=== PATIENT | male | born 1945 | race Caucasian/White ===

== ENCOUNTER → 2024-02-29 15:37 | Outpatient (REF) | payer OTHER, SELFPAY | LOC: RAD 15:37 | PROVIDERS: ATTENDING PHYSICIAN Nurse Practitioner Family | DX: L08.9 Local infection of the skin and subcutaneous tissue, unspecified (principal) | CPT/HCPCS: 73660 ==

== ENCOUNTER 2024-03-01 20:20 | Inpatient (IN) | payer OTHER, SELFPAY ==
[2024-03-01] VITALS (10 sets, daily range): BP systolic 113–154; BP diastolic 47–61; BMI 22.3; BMI 21.2
[2024-03-01 16:51] LABS: % Basophils 1.4 % (0-2); % Eosinophils 2.3 % (0-6); % Immature Granulocytes 0.3 % (0-0.5); % Lymphocytes 11.5 % (20.5-51.1); % Monocytes 9.9 % (1.7-9.3); % Neutrophils 74.6 % (42.2-75.2); Absolute Basophils 0.1 10^3/uL (0-0.2); Absolute Eosinophils 0.2 10^3/uL (0-0.7); Absolute Lymphocytes 0.8 10^3/uL (1.2-3.4); Absolute Monocytes 0.7 10^3/uL (0.1-0.6); Absolute Neutrophils 5.2 10^3/uL (1.4-6.5); Hematocrit 29.6 % (39.0-52.0); Hemoglobin 10.6 g/dL (13.0-18.0); Mean Corp Hgb Conc. 35.8 g/dL (33.0-37.0); Mean Corpuscular Hgb 29.5 pg (27.0-31.0); Mean Corpuscular Volume 82.5 fL (80.0-94.0); Mean Platelet Volume 8.7 fL (7.4-10.4); Nucleated Red Blood Cells % 0 % (-); Platelet Count 207 10^3/uL (130-400); Red Blood Cell Count 3.59 10^6/uL (4.70-6.10); Red Cell Dist. Width 12.9 % (11.5-14.5)
--- NOTE | 2024-03-01 17:08 | ED.GENMED ---
History of Present Illness
<Noreen Brice DO, Resident - Last Filed: 03/01/24 19:42>
General
Chief Complaint: Musculo-Skeletal Complaint
Source: patient and significant other
Time Seen by Provider: 03/01/24 16:55
History of Present Illness
History of Present Illness:
Pt is a 79 YO M presenting to ED after diagnosis of osteomyelitis of right index toe. Patient was called by PCP to go to the ED for IV Abx. said she noticed pus oozing yesterday and PCP did imaging and testing yesterday in clinic. Patient is
stable and reports no other symptoms.
Past History
<Noreen Brice DO, Resident - Last Filed: 03/01/24 19:42>
Past History
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
right temporoparietal)
ED Past Surgical History: Cardiac (AICD) and Other (Left carotid endarterectomy March 2019)
Social History
Tobacco: Non-smoker
Alcohol: None
Drug: None
Personal:
Living: with family
Employment: Retired
Family History
Family History: Unable to obtain
Review of Systems
<Noreen Brice DO, Resident - Last Filed: 03/01/24 19:42>
Review of Systems
Constitutional: Reports no symptoms
EENT: Reports no symptoms
Respiratory: Reports no symptoms
Cardiac: Reports no symptoms
ABD/GI: Reports no symptoms
Musculoskeletal: Reports other (osteomyelitis of right toe)
Skin: Reports other (green discharge from site of injury, moist and weeping skin. )
Neurological: Reports no symptoms
Phy Exam
<Noreen Brice DO, Resident - Last Filed: 03/01/24 19:42>
General Physical Exam
General Presentation: well appearing and no apparent distress
General age: appears stated age
General Habitus: normal and elderly
General Mental: alert
General Hydration: appears well hydrated
Cardiovascular Exam
Cardiovascular Exam: regular rate/rhythm, no edema, no gallop, no JVD, no murmur and normal peripheral pulses
Pulmonary Exam
Pulmonary Exam: lungs clear, no respiratory distress, no rales, chest non tender, no crackles, no rhonchi, no stridor, no wheezing and no cough
Musculoskeletal Exam
Musculoskeletal Exam: full ROM and other (injury to medial right index toe, green discharge and moist skin)
Course
<Noreen Brice DO, Resident - Last Filed: 03/01/24 19:42>
Orders/Labs/Results
Orders:
Orders
03/01/24 Breakfast
Regular
At Your Request: Limited Participation
Fluid Restriction: 1200 mL/day (40 oz)
03/01/24 16:42
CMP [Comprehensive Metabolic Panel] Urgent
Complete Blood Count/With Diff Urgent
Iron Urgent
Total Iron Binding Urgent
Vitamin B12 Urgent
Comment: ADD ON
03/01/24 19:00
PODIATRY CONSULT Urgent
Consulting Provider: Kris Rosario
Was physician already notified: Yes
03/01/24 19:01
Piperacillin/Tazo 3.375 Gram [Zosyn] 3.375 gram in 50 ml IV NOW
03/01/24 19:46
EKG [Electrocardiogram (*1)] Urgent
Reason for Study: Atrial Fibrillation
CXR2 [CR Chest - 2 Views ] Routine
Comment:
Reason For Exam: Pre-Op, PPM
03/01/24 19:47
Admit/Transfer Patient As Directed
Co-Sign Provider:
Level of Care: Inpatient admission
Assign to:: Telemetry
Physician / Group: Derek
Diagnosis: R 2nd Toe Osteomyelitis
Reason for Telemetry: Arrhythmia
Date to Stop Telemetry: 03/04/24
Time to Stop Telemetry: 11:00
Reason for Hospitalization: R 2nd Toe Osteomyelitis
Expected length of stay greater than two midnights?: Yes
ELOS- Estimated Length of Stay in days: 4
I certify the patient meets the requirements for IP care: Yes
03/01/24 19:51
Code Status As Directed
Resuscitation Status: Full Code
03/01/24 20:01
Vancomycin [Vancocin] 1,250 mg 0.9% Sodium Chloride 250 ml [Nss] 250 ml IV NOW
03/01/24 21:19
Acetaminophen [Tylenol] 650 mg PO Q4HPRN PRN
Gabapentin [Neurontin] 300 mg PO BID
03/01/24 21:19
Vascular Surgery Consult Routine
Consulting Provider: Ragini Foley
Was physician already notified: Yes
Reason for consult: Osteo R 2nd Toe / ASCVD
Lower Ext No Joint, Left With MR [MR Left Le No Joint With] Urgent
Comment:
Reason For Exam: Right 2nd Toe OM
Recent pill cam endoscopy?: No
Activity As Directed
Activity Level: Ambulate
With Assistance
Bladder Scan As Directed
Follow Bladder Retention/Intermittent Cath Algorithm?: Yes
PRN if no void in __ hours: 6
Frequency: Per Retention Algorithm
If Bladder Scan Result >: 400
then:: Straight cath
EKG with chest pain [ECG as needed] As Directed
ECG as needed for:: Chest Pain
I/O [Intake/ Output] As Directed
Frequency: Per unit guidelines
Pneumatic Compression Sleeves As Directed
Type: Knee high
Straight Cath As Directed
Frequency: Per Retention Algorithm
Additional Instructions: straight cath as needed per acute urinary retention algorithm for 24 hrs
Additional Instructions: for bladder scan greater than 400 mL
Vital Signs As Directed
Frequency: Per unit guidelines
Weight As Directed
Frequency: Daily
Ot Eval And Treat Routine
PT Consult [Pt Eval And Treat] Routine
Activity Level: Ambulate
With Assistance
DX Deep Vein Thrombosis Video Routine
03/01/24 23:00
Osmolality, Random Urine Urgent
Date Specimen was Collected: 03/01/24
Time Specimen was Collected: 19:26
Urine Sodium Urgent
Date Specimen was Collected: 03/01/24
Time Specimen was Collected: 19:26
03/02/24 02:00
Ampicillin/Sulbactam 3 G [Unasyn] 3 gm 0.9% Sodium Chloride 100 ml [Nss] 100 ml IV Q6H
03/02/24 06:00
Basic Metabolic Panel IN AM
Complete Blood Count/No Diff IN AM
03/02/24 08:00
Aspirin Low Dose EC [Aspir Low (Enteric Coated)] 81 mg PO DAILY
Atorvastatin [Lipitor] 10 mg PO DAILY
NIFEdipine EXTENDED RELEASE [Procardia Xl (Extended Release)] 30 mg PO DAILY
Pantoprazole [Protonix] 40 mg PO DAILY
Tamsulosin [Flomax] 0.4 mg PO DAILY
03/04/24 11:00
DC Protocol for Telemetry ONCE
Abnormal Lab Results
03/01/24
16:42
RBC 3.59 L 10^6/uL
(4.70-6.10)
Hgb 10.6 L g/dL
(13.0-18.0)
Hct 29.6 L %
(39.0-52.0)
Absolute Lymphs (auto) 0.8 L 10^3/uL
(1.2-3.4)
Absolute Monos (auto) 0.7 H 10^3/uL
(0.1-0.6)
Lymphocytes % 11.5 L %
(20.5-51.1)
Monocytes % 9.9 H %
(1.7-9.3)
Sodium 126 L mmol/L
(135-145)
Chloride 95 L mmol/L
(98-107)
Creatinine 1.5 H mg/dL
(0.7-1.3)
Glucose 128 H mg/dl
(70-99)
% Saturation 17 L %
(20-50)
03/01/24 16:42
03/01/24 16:42
Vital Signs
Initial and Last Documented VS:
Initial Vital Signs
Temp Pulse Resp BP Pulse Ox
36.7 C 62 16 132/52 95
03/01/24 15:24 03/01/24 15:24 03/01/24 15:24 03/01/24 15:24 03/01/24 15:24
Last Documented Vital Signs
Temp Pulse Resp BP Pulse Ox
36.6 C 76 18 137/54 94
03/01/24 23:55 03/01/24 23:55 03/01/24 23:55 03/01/24 23:55 03/01/24 23:55
<Curtis Garzon MD - Last Filed: 03/02/24 01:25>
Orders/Labs/Results
Orders:
Orders
03/01/24 Breakfast
Regular
At Your Request: Limited Participation
Fluid Restriction: 1200 mL/day (40 oz)
03/01/24 16:42
CMP [Comprehensive Metabolic Panel] Urgent
Complete Blood Count/With Diff Urgent
Iron Urgent
Total Iron Binding Urgent
Vitamin B12 Urgent
Comment: ADD ON
03/01/24 19:00
PODIATRY CONSULT Urgent
Consulting Provider: Kris Rosario
Was physician already notified: Yes
03/01/24 19:01
Piperacillin/Tazo 3.375 Gram [Zosyn] 3.375 gram in 50 ml IV NOW
03/01/24 19:46
EKG [Electrocardiogram (*1)] Urgent
Reason for Study: Atrial Fibrillation
CXR2 [CR Chest - 2 Views ] Routine
Comment:
Reason For Exam: Pre-Op, PPM
03/01/24 19:47
Admit/Transfer Patient As Directed
Co-Sign Provider:
Level of Care: Inpatient admission
Assign to:: Telemetry
Physician / Group: Derek
Diagnosis: R 2nd Toe Osteomyelitis
Reason for Telemetry: Arrhythmia
Date to Stop Telemetry: 03/04/24
Time to Stop Telemetry: 11:00
Reason for Hospitalization: R 2nd Toe Osteomyelitis
Expected length of stay greater than two midnights?: Yes
ELOS- Estimated Length of Stay in days: 4
I certify the patient meets the requirements for IP care: Yes
03/01/24 19:51
Code Status As Directed
Resuscitation Status: Full Code
03/01/24 20:01
Vancomycin [Vancocin] 1,250 mg 0.9% Sodium Chloride 250 ml [Nss] 250 ml IV NOW
03/01/24 21:19
Acetaminophen [Tylenol] 650 mg PO Q4HPRN PRN
Gabapentin [Neurontin] 300 mg PO BID
03/01/24 21:19
Vascular Surgery Consult Routine
Consulting Provider: Ragini Foley
Was physician already notified: Yes
Reason for consult: Osteo R 2nd Toe / ASCVD
Lower Ext No Joint, Left With MR [MR Left Le No Joint With] Urgent
Comment:
Reason For Exam: Right 2nd Toe OM
Recent pill cam endoscopy?: No
Activity As Directed
Activity Level: Ambulate
With Assistance
Bladder Scan As Directed
Follow Bladder Retention/Intermittent Cath Algorithm?: Yes
PRN if no void in __ hours: 6
Frequency: Per Retention Algorithm
If Bladder Scan Result >: 400
then:: Straight cath
EKG with chest pain [ECG as needed] As Directed
ECG as needed for:: Chest Pain
I/O [Intake/ Output] As Directed
Frequency: Per unit guidelines
Pneumatic Compression Sleeves As Directed
Type: Knee high
Straight Cath As Directed
Frequency: Per Retention Algorithm
Additional Instructions: straight cath as needed per acute urinary retention algorithm for 24 hrs
Additional Instructions: for bladder scan greater than 400 mL
Vital Signs As Directed
Frequency: Per unit guidelines
Weight As Directed
Frequency: Daily
Ot Eval And Treat Routine
PT Consult [Pt Eval And Treat] Routine
Activity Level: Ambulate
With Assistance
DX Deep Vein Thrombosis Video Routine
03/01/24 23:00
Osmolality, Random Urine Urgent
Date Specimen was Collected: 03/01/24
Time Specimen was Collected: 19:26
Urine Sodium Urgent
Date Specimen was Collected: 03/01/24
Time Specimen was Collected: 19:26
03/02/24 02:00
Ampicillin/Sulbactam 3 G [Unasyn] 3 gm 0.9% Sodium Chloride 100 ml [Nss] 100 ml IV Q6H
03/02/24 06:00
Basic Metabolic Panel IN AM
Complete Blood Count/No Diff IN AM
03/02/24 08:00
Aspirin Low Dose EC [Aspir Low (Enteric Coated)] 81 mg PO DAILY
Atorvastatin [Lipitor] 10 mg PO DAILY
NIFEdipine EXTENDED RELEASE [Procardia Xl (Extended Release)] 30 mg PO DAILY
Pantoprazole [Protonix] 40 mg PO DAILY
Tamsulosin [Flomax] 0.4 mg PO DAILY
03/04/24 11:00
DC Protocol for Telemetry ONCE
Abnormal Lab Results
03/01/24
16:42
RBC 3.59 L 10^6/uL
(4.70-6.10)
Hgb 10.6 L g/dL
(13.0-18.0)
Hct 29.6 L %
(39.0-52.0)
Absolute Lymphs (auto) 0.8 L 10^3/uL
(1.2-3.4)
Absolute Monos (auto) 0.7 H 10^3/uL
(0.1-0.6)
Lymphocytes % 11.5 L %
(20.5-51.1)
Monocytes % 9.9 H %
(1.7-9.3)
Sodium 126 L mmol/L
(135-145)
Chloride 95 L mmol/L
(98-107)
Creatinine 1.5 H mg/dL
(0.7-1.3)
Glucose 128 H mg/dl
(70-99)
% Saturation 17 L %
(20-50)
03/01/24 16:42
03/01/24 16:42
Vital Signs
Initial and Last Documented VS:
Initial Vital Signs
Temp Pulse Resp BP Pulse Ox
36.7 C 62 16 132/52 95
03/01/24 15:24 03/01/24 15:24 03/01/24 15:24 03/01/24 15:24 03/01/24 15:24
Last Documented Vital Signs
Temp Pulse Resp BP Pulse Ox
36.6 C 76 18 137/54 94
03/01/24 23:55 03/01/24 23:55 03/01/24 23:55 03/01/24 23:55 03/01/24 23:55
<Noreen Brice DO, Resident - Last Filed: 03/01/24 19:42>
MDM/Problems Addressed
Differential Diagnosis Includes:
osteomyelitis
MDM/Problems Addressed:
Pt is a 79 YO M presenting to ED after diagnosis of osteomyelitis of right index toe. Podiatry consulted and agreed on plan to admit patient. IV Abx (Vancomycin and Zosyn) started and MRI ordered. Patient stable.
Chronic conditions affecting care:
NA
Acute Exacerbation and/or Progression of Chronic Illness:
NA
<Noreen Brice DO, Resident - Last Filed: 03/01/24 19:42>
*Radiology
Radiology exam reviewed: other (MRI of foot ordered, pending)
*Pulse Oximetry
Patient hypoxic: no
*EKG
Interpreted by ED Provider?: NA
*Metal Machine Setter Interpretation
Rate: Metal Machine Setter- N/A
*Critical Care Note
Total Time (30-74mins, 75-104mins- exclusive of procedures): Not Applicable
ED Attending Note
<Noreen Brice DO, Resident - Last Filed: 03/01/24 19:42>
-
Portions of this chart may have been created with voice recognition software.� Occasional wrong word or��sound alike� substitutions may have occurred due to the inherent limitations of voice recognition software.
<Curtis Garzon MD - Last Filed: 03/02/24 01:25>
ED Attending Note
Patient seen and examined by attending physician: Yes
I performed a history and physical exam of patient and discussed management with resident, I reviewed resident's note and agree with documented findings and plan of care.: Yes
ED Attending Note:
I have seen and evaluated the patient with a [id number] encounter. I have spoken to the resident and involved in the medical history, the physical exam, medical decision making.
Evaluation and management service: agree unless noted differently below.
Results interpretation: agree unless noted differently below.
Focused HPI: 79-year-old male with history as documented presents to the emergency room with his for evaluation of right toe wound and outpatient x-ray showing osteomyelitis. Patient is an extremely poor historian. When asked how long he has
had his toe wound he says 'I am not sure, maybe a few months.' Denies any specific trauma. He says that he does have pain in his foot but says that 'I always have pain.' According to his he has been complaining of increased pain over the
past few days to week. She finally took a look at his foot and noted that he has a large wound on the medial aspect of his second toe. Took him to his primary doctor who ordered outpatient x-ray which was performed yesterday. Today received a
call that he had osteomyelitis on the x-ray and was sent to the emergency room. No fevers or chills. No other complaints.
Physical exam: Awake alert. Vital signs normal. He has a shallow-based ulceration on the medial aspect of his right second toe. The entire toe is erythematous, skin is somewhat friable and tender to the touch. No extension of the erythema beyond
the toe�the adjacent toes appear normal although toenails all appear to onychomycosis.
Medical Decision Makin-year-old male presents with right toe wound and redness surrounding, x-rays and outpatient concern for osteomyelitis. I discussed the case with podiatry who recommended admission for IV antibiotics and MRI and they will
consult on patient.
Discharge Plan
Departure
Patient Disposition: Admit
Date of Disposition: 03/01/24
Time of Disposition: 19:24
Admit to: Telemetry
Presentation/result/management discussed w/ accepting MD/DO: Hospitalist
Condition: Good
Discharge Problem:
Osteomyelitis of foot
Interventions
Interventions:
*Risk Screen - Suicide Last Done: 03/01/24 16:36
*General Assessment Last Done: 03/01/24 15:24
*Neglect/Abuse Screening Last Done: 03/01/24 16:36
ED- Fall Risk Assessment Last Done: 03/01/24 21:14
*ED COVID-19 Vaccine History Last Done: 03/01/24 16:36
*Nursing Disposition Last Done: 03/01/24 21:14
ED-Musculoskeletal Assessment Last Done: 03/01/24 16:36
Discharge Date and Time
Discharge Date/Time: 03/01/24 21:14
[2024-03-01 17:14] LABS: ALT (SGPT) < 10 U/L (0-50); AST (SGOT) 24 U/L (17-59); Albumin 3.9 g/dl (3.5-5.0); Alkaline Phosphatase 118 U/L (38-126); Blood Urea Nitrogen 14 mg/dl (9-20); Carbon Dioxide 22 mmol/L (22-30); Chloride 95 mmol/L (98-107); Estimated Creatinine Clearance 38 ml/min; Glucose 128 mg/dl (70-99); Potassium 4.6 mmol/L (3.5-5.1); Sodium 126 mmol/L (135-145); Total Bilirubin 0.6 mg/dl (0.2-1.3); eGFR 47.36
[2024-03-01] MEDS: ZOSYN 50 IV (19:14)
--- NOTE | 2024-03-01 19:20 | PHANOTE ---
Med Rec Note:
Tried to call pt's [place] regarding home medications, spouse did not answer. Home med list compiled from Dr Apodaca and [facility] visit on 02/29/24.
--- NOTE | 2024-03-01 19:56 | HPS.HSE ---
Family Physician
-
Family Physician: ANH Rivera
Chief Complaint
-
R 2nd Toe Swelling
History of Present Illness
Patient is a 79y M with PMH significant for ASCVD, A-Fib and prior hemorrhagic CVA who presents to ED for evaluation of R 2nd toe wound, swelling and suspected osteomyelitis on outpatient imaging. Patient states that the toe has been discolored
and somewhat swollen for 'a while'. He had outpatient imaging done on 02/28 showing bony changes suspicious for osteomyelitis. Patient states that he has no pain at present. He denies any systemic complaints including fevers, chills, N/V/D, etc.
Patient denies any other complaints.
Medical History
Past Medical History
Past Medical History: Reports Other
Additional Past Medical History:
ASCVD (CAD, Carotid Stenosis)
Chronic Atrial Fibrillation
Hemorrhagic CVA (2020)
Hypertension
Dementia / Depression
Chronic Hyponatremia
CKD III
Past Surgical History: Reports Other
Additional Past Surgical History:
Herniorrhaphy
CABG
PPM / AICD Placement
Left CEA
Social History
Tobacco: Non-smoker
Alcohol: Occasional
Drug: None
Personal:
Living: With Family
Family History
Family History: Not pertinent
Allergies / Home Medications
Allergies reflects when Allergies were last updated in [employer].
Home Medications with original date entered in [facility]
Allergy/Medication List:
Allergies
Allergy/AdvReac Type Severity Reaction Status Date / Time
No Known Allergies Allergy Verified 03/01/24 15:27
Home Medications
aspirin 81 mg tablet,delayed release 81 mg PO DAILY #30 tabs 10/14/20
atorvastatin 10 mg tablet 10 mg PO DAILY #90 tabs 10/14/20
gabapentin 300 mg capsule 300 mg PO BID #180 caps 10/14/20
nifedipine 30 mg tablet,extended release 30 mg PO DAILY #30 tabs 10/14/20
tamsulosin 0.4 mg capsule 0.4 mg PO DAILY #90 caps 10/14/20
escitalopram oxalate 5 mg tablet 5 mg PO DAILY 03/01/24
melatonin 5 mg tablet 5 mg PO HSPRN PRN sleep 03/01/24
pantoprazole 40 mg tablet,delayed release 40 mg PO DAILY 03/01/24
sulfamethoxazole 800 mg-trimethoprim 160 mg tablet 1 tab PO BID 03/01/24
Review of Systems
-
History Source: Patient
A 12 point ROS was completed and negative except as noted: Yes
Constitutional: Denies Fever or Chills
Respiratory: Denies Cough or Trouble Breathing
Cardiac: Denies Chest Pain or Palpitations
Abdomen/GI: Denies Abdominal Pain, Nausea, Vomiting or Diarrhea
: Denies Dysuria or Frequency
Musculoskeletal: Reports Joint Pain and Joint Swelling
Neurological: Denies Dizzy or Headache
Psych: Reports Dementia
Physical Exam
Vital Signs
Vital Signs
Temp Pulse Resp BP Pulse Ox
98.1 F 56 18 136/58 93
03/01/24 15:24 03/01/24 19:18 03/01/24 19:18 03/01/24 19:18 03/01/24 19:18
Physical Exam
General: Other (79y M in no acute distress.)
HEENT: Moist mucous membranes and PERRLA
Respiratory: Clear; No Wheezes, Rales or Rhonchi
Cardiac: S1/S2, Regular Rhythm and Murmur (II/ JACOB)
GI: Soft, Non Tender, Non Distended and Normal Bowel Sounds
Musculoskeletal: No Clubbing, No Cyanosis and Other (Edema and mild erythema of the R 2nd toe extending into the forefoot. Thick onychololysis of great toes. Ulceration medial aspect of the R 2nd toe without bleeding / discharge.)
Neuro: Awake and Alert
Laboratory Results
-
03/01/24 16:42
03/01/24 16:42
Laboratory Results
Total Bilirubin 0.6 mg/dl (0.2-1.3) 03/01/24 16:42
AST 24 U/L (17-59) 03/01/24 16:42
ALT < 10 U/L (0-50) 03/01/24 16:42
Alkaline Phosphatase 118 U/L (38-126) 03/01/24 16:42
Impression/Plan
-
A/P: Patient is a 79y M with PMH significant for ASCVD, A-Fib and prior hemorrhagic CVA who presents to ED for evaluation of R 2nd toe swelling with suspected osteomyelitis.
Right 2nd Toe Ulceration +/- Osteomyelitis
- Admit for further evaluation and treatment.
- Continue IV abx with Unasyn for now.
- Adjust as needed based on operative cultures and / or definitive surgical treatment.
- Podiatry consulted for further recommendations / potential amputation.
- Vascular Surgery evaluation given significant ASCVD history.
- No significant pain. No systemic symptoms of infection / sepsis.
- Follow for clinical changes.
ASCVD
- History of CAD s/p CABG, prior CEA and history of hemorrhagic CVA.
- No chest pain or other symptoms at present.
- Continue ASA, statin, etc.
- Vasc eval as noted above.
Chronic Hyponatremia
- Na = 126. On prior visits, ranged from 125 - 133.
- Urine studies pending at present.
- Fluid restriction for now.
- Hold Lexapro.
- Follow for changes.
- Nephrology evaluation - patient received Samsca during prior admission for hyponatremia.
Chronic Atrial Fibrillation
- Not on OAC given prior history of hemorrhagic stroke.
- s/p PPM and AICD.
- Monitor on tele. Check EKG now.
- Continue baby ASA.
Renal Insufficiency (DARRICK v CKD)
- SCr = 1.5 compared to 1.0 on prior testing (3 years ago).
- Outpatient records suggest CKD III - ? acute versus chronic.
- Follow for changes over the next 48 hours.
Normocytic Anemia
- Hgb = 10.6 with baseline fluctuating between 10.5 and 12.5.
- No gross evidence of blood loss.
- Check iron studies, B12, etc.
- Follow H&H for changes.
- Consider transfusion if needed.
Benign Hypertension
- Stable. Continue nifedipine with holding parameters.
Senile Dementia with Depression
- Stable. Continue gabapentin. Hold Lexapro for now as noted above.
- Follow for acute delirium / decompensation during hospital stay.
DVT Prophylaxis: SCDs
Code Status: Full
[2024-03-01] MEDS: VANCOCIN 275 MG IV (20:27)
[2024-03-01 21:57] LABS: Iron 51 ug/dl (49-181)
[2024-03-01] MEDS: NEURONTIN 300 MG PO (21:57)
[2024-03-01 22:07] LABS: Percent Saturation 17 % (20-50); Total Iron Binding Capacity 297 ug/dl (261-462)
[2024-03-01 22:39] LABS: Vitamin B12 274 pg/ml (239-931)
[2024-03-02] VITALS (17 sets, daily range): BP systolic 100–142; BP diastolic 50–79; BMI 20.4
[2024-03-02] MEDS: UNASYN IV ×4 (01:10→19:49)
--- NOTE | 2024-03-02 07:31 | W.PN.HOSP.TC ---
Today's Communication/Plan
-
cont abx
wound care
podiatry eval
B12 supplementation.
Assessment / Plan
Assessment / Plan
Physical Exam
General: No acute distress
HEENT: Moist mucous membranes and PERRLA
Respiratory: Clear; No Wheezes, Rales or Rhonchi
Cardiac: S1/S2, Regular Rhythm and Murmur (II/ JACOB)
GI: Soft, Non Tender, Non Distended and Normal Bowel Sounds
Musculoskeletal: No Clubbing, No Cyanosis, no edema
Neuro: Awake and Alert
A/P: Patient is a 79y M with PMH significant for ASCVD, A-Fib and prior hemorrhagic CVA who presents to ED for evaluation of R 2nd toe swelling with suspected osteomyelitis.
Right 2nd Toe Ulceration +/- Osteomyelitis
- Continue IV abx Unasyn
- Podiatry consulted for further recommendations / potential amputation.
- Vascular Surgery eval appreciated
- No significant pain. No systemic symptoms of infection / sepsis.
ASCVD
- History of CAD s/p CABG, prior CEA and history of hemorrhagic CVA.
- No chest pain or other symptoms at present.
- Continue ASA, statin, etc.
- Vasc eval as noted above.
Chronic Hyponatremia
- Na = 126. On prior visits, ranged from 125 - 133.
- Urine studies pending at present.
- Fluid restriction for now.
- Hold Lexapro.
- Follow for changes.
- Nephrology eval appreciated
Chronic Atrial Fibrillation
- Not on OAC given prior history of hemorrhagic stroke.
- s/p PPM and AICD.
- Monitor on tele. Check EKG now.
- Continue baby ASA.
Renal Insufficiency (DARRICK v CKD)
- Nephro eval appreciated
Normocytic Anemia
- No gross evidence of blood loss.
- H&H stable
-Iron wnl
-B12 deficiency noted, started on supplementation
Benign Hypertension
- Stable. Continue nifedipine with holding parameters.
Senile Dementia with Depression
- Stable. Continue gabapentin. Hold Lexapro for now as noted above.
- Follow for acute delirium / decompensation during hospital stay.
DVT Prophylaxis: SCDs
Code Status: Full
I spent a total of 50 minutes with the patient or on the floor. More than 50% of this time involved counseling and coordination of care.
Anticipated Discharge: > 48 hours
Subjective/Interval History
-
Date of Service: March 02, 2024
No acute distress appears comfortable at this time.
Objective Data
-
Labs:
Laboratory Results
03/02/24
06:36
WBC Pending
Hgb Pending
Hct Pending
Plt Count Pending
Sodium Pending
Potassium Pending
Chloride Pending
Carbon Dioxide Pending
BUN Pending
Creatinine Pending
Glucose Pending
Calcium Pending
Vital Signs:
Vital Signs
Temp Pulse Resp BP Pulse Ox
97.8 F 71 18 132/59 90
03/02/24 03:07 03/02/24 03:07 03/02/24 03:07 03/02/24 03:07 03/02/24 03:07
I&O
03/01/24 03/02/24 03/03/24
06:59 06:59 06:59
Intake Total 240 / 240
Output Total 300 / 300 250 / 250
Balance -60 / -60 -250 / -250
[2024-03-02 08:12] LABS: Hematocrit 28.4 % (39.0-52.0); Hemoglobin 10.2 g/dL (13.0-18.0); Mean Corp Hgb Conc. 35.9 g/dL (33.0-37.0); Mean Corpuscular Hgb 29.5 pg (27.0-31.0); Mean Corpuscular Volume 82.1 fL (80.0-94.0); Mean Platelet Volume 9.3 fL (7.4-10.4); Platelet Count 210 10^3/uL (130-400); Red Blood Cell Count 3.46 10^6/uL (4.70-6.10); Red Cell Dist. Width 12.9 % (11.5-14.5); White Blood Cell Count 9.1 10^3/uL (4.8-10.8)
[2024-03-02 08:26] LABS: Blood Urea Nitrogen 12 mg/dl (9-20); Calcium 8.7 mg/dl (8.4-10.2); Carbon Dioxide 21 mmol/L (22-30); Chloride 97 mmol/L (98-107); Estimated Creatinine Clearance 33 ml/min; Glucose 90 mg/dl (70-99); Potassium 4.1 mmol/L (3.5-5.1); Sodium 127 mmol/L (135-145); eGFR 43.83
[2024-03-02] MEDS: PROTONIX 40 MG PO (08:32)
[2024-03-02] MEDS: PROCARDIA XL (EXTENDED RELEASE) 30 MG PO (08:32)
[2024-03-02] MEDS: FLOMAX 0.4 MG PO (08:32)
[2024-03-02] MEDS: ASPIR LOW (ENTERIC COATED) 81 MG PO (08:32)
[2024-03-02] MEDS: NEURONTIN 300 MG PO ×2 (08:32→19:49)
[2024-03-02] MEDS: LIPITOR 10 MG PO (08:32)
[2024-03-02] MEDS: FLUSH (NSS) 1 FLUSH IV ×2 (08:33→10:15)
--- NOTE | 2024-03-02 08:36 | W.PN.UPDATE ---
Update Note
Progress Note Update
Seen and examined with CARYL Vallecillo. Full consultation to follow. 79-year-old male known to me from prior left carotid endarterectomy in 2019. Has not followed up regularly since. Was last seen in the office in 2020. Now has right second toe
osteomyelitis. On exam he has palpable femoral pulses but nonpalpable distally bilaterally. Feet are warm, right second toe with changes as noted.
Plan/ Clinical evidence of PAD, osteomyelitis right second toe. Chronic limb threatening ischemia. Recommend angiography. Technical aspects of the procedure were discussed in addition to potential scenarios/outcomes: #1 successful
revascularization endovascularly, #2 need for staged surgical bypass, #3 no unreconstructable distal disease with persistent limb threat. Discussed risks of the procedure including but not limited to bleeding, arterial injury or worsened or acute
limb ischemia, renal failure (with underlying mild to moderate renal insufficiency he is increased risk, but may be outweighed by his limb threat). Patient and his understand all. I spoke to his over the phone. They wish to proceed.
[2024-03-02] MEDS: CYANOCOBALAMIN 1000 MCG IM (08:53)
[2024-03-02] MEDS: CYANOCOBALAMIN 100 MCG IM (08:53)
--- NOTE | 2024-03-02 09:00 | CON.VAS ---
Consultation
Consultation Request
Date/Time Consultation Performed: 03/02/2024 0815
Requesting Provider: Hospitalist
Performing Provider: Deanne Vallecillo NP-C for Jonathan Garcia MD
Reason for Consultation: Right foot second digit nonhealing wound
Medical History
-
Chief Complaint: Right foot second digit nonhealing wound
History of Present Illness:
This is a 79-year-old male with significant past medical history for atrial fibrillation, coronary disease, permanent pacemaker, hemorrhagic stroke, hypertension, dementia, and kidney disease who presented to the ER on 03/01/2024 for concerns of
osteomyelitis at right foot second digit toe. Patient is a poor historian and cannot recall how long he has had wound/infection at right foot digit or if trauma or event precipitated wound. Chart review indicates that patient had outpatient imaging
done that was concerning for osteomyelitis at the foot prompting ED evaluation. Currently offers no complaints. Denies nausea, vomiting, fever, and chills. Patient is known to our practice as he underwent left carotid endarterectomy in March
2019. However, following initial procedure follow-up it seems that he did not continue to pursue routine surveillance/ follow up in our office.
Past Medical History
Past Medical History: Arrhythmias (Atrial fibrillation), CAD (CAD), CVA (Hemorrhagic (2020)), HTN, Psychiatric (Dementia/depression, CKD stage III, chronic hyponatremia) and Other (Carotid stenosis)
Past Surgical History: Cardiac (CABG, PPM / AICD Placement) and Other (Left carotid endarterectomy)
Social History
Tobacco: Non-Smoker
Drug: None
Personal:
Living: With Family
Allergies / Home Medications
Allergy/AdvReac Type Severity Reaction Status Date / Time
No Known Allergies Allergy Verified 03/01/24 15:27
�Medication �Instructions �Recorded �Confirmed �Type
aspirin 81 mg tablet,delayed 81 mg PO DAILY #30 tabs 10/14/20 03/01/24 Rx
release
atorvastatin 10 mg tablet 10 mg PO DAILY #90 tabs 10/14/20 03/01/24 Rx
gabapentin 300 mg capsule 300 mg PO BID #180 caps 10/14/20 03/01/24 Rx
nifedipine 30 mg tablet,extended 30 mg PO DAILY #30 tabs 10/14/20 03/01/24 Rx
release
tamsulosin 0.4 mg capsule 0.4 mg PO DAILY #90 caps 10/14/20 03/01/24 Rx
escitalopram oxalate 5 mg tablet 5 mg PO DAILY depression/anxiety 03/01/24 03/01/24 History
melatonin 5 mg tablet 5 mg PO HSPRN PRN sleep 03/01/24 03/01/24 History
pantoprazole 40 mg tablet,delayed 40 mg PO DAILY Gastrointestinal 03/01/24 03/01/24 History
release Issue
sulfamethoxazole 800 1 tab PO BID Infection 03/01/24 03/01/24 History
mg-trimethoprim 160 mg tablet
Review of Systems
-
Unable to obtain full review of systems at this time due to: Dementia
History Source: Patient
Constitutional: Reports No Symptoms
EENT: Reports No Symptoms
Respiratory: Reports No Symptoms
Cardiac: Reports No Symptoms
Abdomen/GI: Reports No Symptoms
: Reports No Symptoms
Musculoskeletal: Reports No Symptoms
Skin: Reports Other (Right foot second digit wound)
Neurological: Reports No Symptoms
Endocrine: Reports No Symptoms
Physical Exam
Vital Signs
Temp Pulse Resp BP Pulse Ox
97.8 F 83 18 142/67 94
03/02/24 03:07 03/02/24 08:32 03/02/24 03:07 03/02/24 08:32 03/02/24 08:27
Lab Results
03/02/24 06:36
03/02/24 06:36
Physical Exam
General: No Apparent Distress and Comfortable
HEENT: Normocephalic, Anicteric and Atraumatic
Respiratory: Non Labored Respirations
Cardiac: Negative JVD
GI: Soft, Non Tender and Non Distended
Musculoskeletal: No Edema
Skin: Warm, Dry and Other (Edema and mild erythema of the right second digit extending into the forefoot, with ulceration medial aspect of the R 2nd toe without bleeding /or discharge)
Neuro: Awake and Other (Unable to recall recent medical events or indication for admission)
Pulses: Bilateral Femoral: +1 (Distal DP/PT pulses nonpalpable)
Assessment / Plan
-
Assessment: 79-year-old male admitted for management of suspected right foot second digit osteomyelitis, concern for peripheral arterial disease/chronic limb threatening ischemia contributing to nonhealing.
Plan:
Recommend arteriogram. Technical aspects of the procedure were discussed in addition to potential scenarios/outcomes: #1 successful revascularization endovascularly, #2 need for staged surgical bypass, #3 no unreconstructable distal disease with
persistent limb threat. Discussed risks of the procedure including but not limited to bleeding, arterial injury or worsened or acute limb ischemia, renal failure (with underlying mild to moderate renal insufficiency he is increased risk, but may be
outweighed by his limb threat). These risks or benefits were reviewed by Dr. Jonathan Garcia to both patient and his . They wish to proceed.
N.p.o.
Nephrology following appreciate recommendations for IV hydration given dye required for arteriogram
I performed this shared service with the attending. I evaluated the patient [id number] and have entered clinical documentation as shown in the encounter note. I performed the following component(s): history and physical exam. Note that medical
decision making is not final until attested by vascular attending.
[2024-03-02] MEDS: SODIUM BICARBONATE 1150 MEQ IV (10:14)
--- NOTE | 2024-03-02 11:37 | W.SUR.PREOP ---
Pre-Operative Surgical Note
-
I have examined this patient prior to the performance of the scheduled procedure.
The patient's condition is unchanged from the time of the current History and
Physical and the patient is able to undergo the scheduled procedure.
--- NOTE | 2024-03-02 13:16 | W.PN.UPDATE ---
Update Note
Progress Note Update
Angiogram completed. Unfortunately has severe bulky plaque in his popliteal artery behind the knee through which wire could not be passed. Severely flow-limiting. Runoff below the knee had three-vessel runoff proximally but really only a peroneal
artery that ran down. It was a very diseased artery. All his runoff arteries were severely diseased. Even before the administration of contrast on just plain fluoroscopy, his vessel outlines could be clearly seen below the knee. Dense heavy
calcifications. Therefore I do not think he is a bypass candidate. I am not sure that there is any other revascularization options that are reasonable on him. We could potentially consider LimFlow but I do not know that that is even a feasible
option for him. Discussed with the patient's that he is at significant risk for limb amputation. However would proceed with source control of his osteomyelitis/infection with toe amputation. Understanding there is a moderate to significant
risk that he would not heal. I can see him back in the office in short order follow-up in the next 2 to 4 weeks to see how he is healing and we can determine the course of action based on that.
--- NOTE | 2024-03-02 14:41 | PTCARENOTE ---
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 Pt AAO x3, HUMMEL weakly; keeping lt leg straight x 6 hrs. VSS. Telemetry:Afib. On room air- pulse ox 02%, no SOB noted. Abd soft, to start reg diet w/1200 ml fl restriction.
pt DTV; urinal at bedside. IVF's sterile H2O with 150 Meq NaHCO3 infusing @ 60 ml/hr via Rt forearm site without sx of infiltration. Resting in bed at present; at bedside. Will continue to monitor.
--- NOTE | 2024-03-02 14:47 | OR.RPT ---
Operative Report
Operative Report
PROCEDURE DATE: 03/02/2024
Preoperative diagnosis: CLTI (chronic limb threatening ischemia) right lower extremity with osteomyelitis right second toe.
Postoperative diagnosis: Same
Procedure:
1. Duplex assisted left common femoral artery cannulation.
2. Aortogram and pelvic angiogram.
3. Right lower extremity arteriogram with third order vessel catheterization of right above-knee popliteal artery via left common femoral artery puncture.
4. Supervision and interpretation.
Surgeon: Jose
[employer]n Worker: None
Complications: None
Anesthesia: Local, sedation, converted to general/LMA due to excessive patient movement.
Fluoroscopy:
13.8 min
36 mGy
8.69 Gy.cm2
Indications for procedure:
Patient with right second toe osteomyelitis. Clinical evidence of peripheral arterial disease. Brought for angiography. Risk/benefits/alternatives discussed with the patient as well as his who is his POA. They understood all wish to proceed.
Description of procedure:
Patient was identified, brought to the operating room. Placed on the table in the supine position. After the adequate administration of anesthesia, the patient was prepped and draped in the standard surgical fashion. A standard preoperative
timeout was undertaken and everybody was in agreement with the plan.
The left common femoral artery was accessed with a micropuncture kit under direct duplex ultrasound guidance. A 5 Dutch sheath was then advanced over a 0.035 inch wire, and a loza's hook catheter was advanced into the abdominal aorta.
Aortogram and pelvic angiogram was obtained. Findings as follows:
Moderate eccentric plaque noted throughout aorta/bilateral iliac arteries. No significant stenosis noted in the distal infrarenal aorta or bilateral common or external iliac arteries.
Using a floppy angled hydrophilic wire, the right common femoral artery was cannulated and the catheter was advanced. Right lower extremity arteriogram was obtained. Findings as follows:
Common femoral artery: Patent with no significant stenosis
Profunda femoris artery: Patent with no significant stenosis, but severe eccentric eggshell like plaque.
Superficial femoral artery: Patent with no significant stenosis, but severe eccentric eggshell like plaque.
Popliteal artery: Severe diffuse stenosis in the above-knee to below-knee popliteal artery with focal occlusions with bulky plaque.
Anterior tibial artery: Patent proximally with severe string-like stenosis in the first 2 cm and then patent for about 2 cm before occlusion.
Tibial peroneal trunk: Patent with bulky plaque proximally, but no definitive hourglass like stenosis.
Peroneal artery: Patent with 2 string-like stenoses in the distal third of the vessel focally.
Posterior tibial artery: Patent proximally but not seen visualized more distally suggestive of occlusion.
At this point I selectively cannulated the right superficial femoral artery and then exchanged for a Storq wire and an up and over 6 Dutch sheath. Patient was given an appropriate dose of heparin. Next, under roadmap assisted guidance I tried to
traverse the area of severe plaque stenosis bulky plaque/focal occlusions in the popliteal artery. Despite multiple attempts with a 0.035 inch floppy Glidewire, I had no success. Therefore I exchanged for a 0.014 inch steerable Allen wire without
success. I transition back to the 0.035 inch floppy Glidewire but again was unable to gain any success. At this point I felt that there is nothing endovascularly here to do. I did not feel that any of his tibial vessels were reasonable target
vessels nor was his below-knee popliteal artery all due to the severe calcific nature of the plaque. At this point the wires and catheters were withdrawn. The sheath was withdrawn and manual pressure was applied to the puncture site. Hemostasis
achieved. The patient tolerated procedure well.
--- NOTE | 2024-03-02 14:49 | W.CON.NEPH ---
Consultation
-
Date/Time Consultation Requested: March 02, 2024 9 AM
Date/Time Consultation Performed: March 02, 2024 3 PM
Requesting Provider: Dr. Garcia
Performing Provider: Dr. Steven
Reason for Consultation: Acute kidney injury
Medical History
-
Chief Complaint: Right toe swelling
History of Present Illness:
This is a 79-year-old gentleman with hypertension on a monotherapy regimen modestly controlled, atrial fibrillation paroxysmal with history of stroke on antiplatelet therapy who has suspected osteomyelitis of his right foot second toe. He was
placed on Bactrim as an outpatient and received 2 doses before coming to the emergency room. His baseline creatinine is around 1.0 up to 1.2. He came to the emergency room because of worsening discoloration and swelling in his right toe. At the
time of admission his creatinine was 1.5. There is concern that his foot was at vascular risk. He was taken to the operating room and underwent angiogram today which unfortunately did not reveal any potential for vascular intervention. We are
asked to assist with management of his acute kidney injury
Past Medical History
Peripheral arterial disease
Carotid arterial disease
Coronary disease
Atrial fibrillation
Hemorrhagic stroke
Hypertension
Dementia
Depression
CKD 3A
Hyponatremia
Hernia repair
CABG
Left carotid endarterectomy
Pacemaker ICD
Social History
Tobacco: Non-Smoker
Alcohol: Occasional
Family History
Family History: Not Pertinent
Allergies / Home Medications
Allergy/AdvReac Type Severity Reaction Status Date / Time
No Known Allergies Allergy Verified 03/01/24 15:27
�Medication �Instructions �Recorded �Confirmed �Type
aspirin 81 mg tablet,delayed 81 mg PO DAILY #30 tabs 10/14/20 03/01/24 Rx
release
atorvastatin 10 mg tablet 10 mg PO DAILY #90 tabs 10/14/20 03/01/24 Rx
gabapentin 300 mg capsule 300 mg PO BID #180 caps 10/14/20 03/01/24 Rx
nifedipine 30 mg tablet,extended 30 mg PO DAILY #30 tabs 10/14/20 03/01/24 Rx
release
tamsulosin 0.4 mg capsule 0.4 mg PO DAILY #90 caps 10/14/20 03/01/24 Rx
escitalopram oxalate 5 mg tablet 5 mg PO DAILY depression/anxiety 03/01/24 03/01/24 History
melatonin 5 mg tablet 5 mg PO HSPRN PRN sleep 03/01/24 03/01/24 History
pantoprazole 40 mg tablet,delayed 40 mg PO DAILY Gastrointestinal 03/01/24 03/01/24 History
release Issue
sulfamethoxazole 800 1 tab PO BID Infection 03/01/24 03/01/24 History
mg-trimethoprim 160 mg tablet
Review of Systems
-
Currently no pain, no shortness of breath.
All other systems: Negative unless noted
Physical Exam
Vital Signs
Vital Signs
Temp Pulse Resp BP Pulse Ox
97.8 F 73 13 106/62 100
03/02/24 14:10 03/02/24 13:45 03/02/24 13:45 03/02/24 13:45 03/02/24 13:45
Lab Results
WBC 9.1 10^3/uL (4.8-10.8) 03/02/24 06:36
RBC 3.46 10^6/uL (4.70-6.10) L 03/02/24 06:36
Hgb 10.2 g/dL (13.0-18.0) L 03/02/24 06:36
Hct 28.4 % (39.0-52.0) L 03/02/24 06:36
Plt Count 210 10^3/uL (130-400) 03/02/24 06:36
Sodium 127 mmol/L (135-145) L 03/02/24 06:36
Potassium 4.1 mmol/L (3.5-5.1) 03/02/24 06:36
Chloride 97 mmol/L (98-107) L 03/02/24 06:36
Carbon Dioxide 21 mmol/L (22-30) L 03/02/24 06:36
BUN 12 mg/dl (9-20) 03/02/24 06:36
Creatinine 1.6 mg/dL (0.7-1.3) H 03/02/24 06:36
eGFR 43.83 03/02/24 06:36
Glucose 90 mg/dl (70-99) 03/02/24 06:36
Calcium 8.7 mg/dl (8.4-10.2) 03/02/24 06:36
Albumin 3.9 g/dl (3.5-5.0) 03/01/24 16:42
Physical Exam
Patient is awake alert oriented and in no distress. Mood and affect were pleasant, insight and judgment were good. Pupils are equal round and reactive to light, extraocular movements are intact, sclera were anicteric. Hearing was normal, ears and
nose are intact. Oropharynx was clear. Neck was supple with trachea midline and no thyromegaly. Heart was regular rate and rhythm without rubs. Lower extremities with trace edema. Lungs were clear to auscultation bilaterally and with normal
excursion. Abdomen was soft, nontender, with normal active bowel sounds, and no hepatosplenomegaly. Skin was without rash and with normal turgor.
Data Reviewed
-
Radiology: Image Personally Visualized and interpreted (Chest x-ray on March 01, 2024 by my reading shows moderate left pleural effusion small right effusion)
Medical Tests (Nuc Med, Echo etc): Image Personally Visualized and interpreted (EKG on March 01, 2012 read shows atrial fibrillation) and Discussed with Physician (Angiogram reviewed with Dr. Garcia)
Labs: Labs Reviewed by me (Hemoglobin 10.2, sodium 127, potassium 4.1, bicarbonate 21, BUN 12, creatinine 1.6, glucose 90)
Old Records: Reviewed (On September 20, 2023 sodium 130, potassium 3.8, creatinine 1.12; on June 27, 2023 sodium 134)
Assessment/Plan
-
Assessment
Significant peripheral arterial disease status post angiogram
DARRICK
CKD 3A, 1.2
Hypertension
Hyponatremia chronic
Atrial fibrillation
Plan
I suspect elevation of creatinine may be in part due to Bactrim this has not been discontinued
If creatinine remains elevated or worsens, will need renal ultrasound
IV fluids with bicarbonate is given with contrast exposure
Risk and benefits were determined to favor the benefit of a gram with potential for intervention
Follow BMP
Check urine studies
May benefit from Lasix or Samsca pending urine studies
Light fluid restriction
Discussed with patient and his
--- NOTE | 2024-03-02 16:29 | PTCARENOTE ---
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 VSS. Circ/neuro check to BLE WNL; feet pink/warm; no c/o pain/numbness in BLE. Lt groin dsg D/I. Will continue to monitor.
[2024-03-03 00:43] LABS: Osmolality Urine 292 mOsm/kg (300-900)
[2024-03-03 00:52] LABS: Urine Sodium 55 mmol/L (30-90)
[2024-03-03] MEDS: UNASYN IV ×4 (01:53→22:11)
[2024-03-03 03:46] VITALS: BP 116/69
--- NOTE | 2024-03-03 07:09 | W.PN.HOSP.TC ---
Today's Communication/Plan
-
trend Cr
PT/OT
monitor off abx
Assessment / Plan
Assessment / Plan
Physical Exam
General: No acute distress
HEENT: Moist mucous membranes and PERRLA
Respiratory: Clear; No Wheezes, Rales or Rhonchi
Cardiac: S1/S2, Regular Rhythm and Murmur (II/ JACOB)
GI: Soft, Non Tender, Non Distended and Normal Bowel Sounds
Musculoskeletal: No Clubbing, No Cyanosis, no edema
Neuro: Awake and Alert
A/P: Patient is a 79y M with PMH significant for ASCVD, A-Fib and prior hemorrhagic CVA who presents to ED for evaluation of R 2nd toe swelling with suspected osteomyelitis.
Right 2nd Toe Ulceration
- ID eval appreciated monitor off abx, empiric Unasyn discontinued
- Podiatry consult appreciated conservative mgmt recommended
- Vascular Surgery eval appreciated
- No significant pain. No systemic symptoms of infection / sepsis.
ASCVD
- History of CAD s/p CABG, prior CEA and history of hemorrhagic CVA.
- No chest pain or other symptoms at present.
- Continue ASA, statin, etc.
- Vasc eval as noted above.
Chronic Hyponatremia
- Fluid restriction
- Hold Lexapro.
- Nephrology eval appreciated
Chronic Atrial Fibrillation
- Not on OAC given prior history of hemorrhagic stroke.
- s/p PPM and AICD.
- Continue baby ASA.
Renal Insufficiency (DARRICK v CKD)
- Nephro eval appreciated
-Trend Cr
Normocytic Anemia
- No gross evidence of blood loss.
- H&H stable
-Iron wnl
-B12 deficiency noted, started on supplementation
Benign Hypertension
- Stable. Continue nifedipine with holding parameters.
Senile Dementia with Depression
- Stable. Continue gabapentin. Hold Lexapro for now as noted above.
- Follow for acute delirium / decompensation during hospital stay.
DVT Prophylaxis: SCDs
Code Status: Full
I spent a total of 50 minutes with the patient or on the floor. More than 50% of this time involved counseling and coordination of care.
Anticipated Discharge: 24 - 48 hours
Subjective/Interval History
-
Date of Service: March 03, 2024
No acute distress. Reports overall feeling well.
Objective Data
-
Labs:
Laboratory Results
03/03/24
06:00
WBC Pending
Hgb Pending
Hct Pending
Plt Count Pending
Sodium Pending
Potassium Pending
Chloride Pending
Carbon Dioxide Pending
BUN Pending
Creatinine Pending
Glucose Pending
Calcium Pending
Vital Signs:
Vital Signs
Temp Pulse Resp BP Pulse Ox
98.3 F 77 18 116/69 92
03/03/24 03:46 03/03/24 03:46 03/03/24 03:46 03/03/24 03:46 03/03/24 03:46
I&O
03/02/24 03/03/24 03/04/24
06:59 06:59 06:59
Intake Total 240 / 240 1305 / 1305
Output Total 300 / 300 750 / 750
Balance -60 / -60 555 / 555
[2024-03-03 07:40] VITALS: BP 124/78
[2024-03-03] MEDS: PROCARDIA XL (EXTENDED RELEASE) 30 MG PO (08:59)
[2024-03-03] MEDS: PROTONIX 40 MG PO (08:59)
[2024-03-03] MEDS: NEURONTIN 300 MG PO ×2 (08:59→20:55)
[2024-03-03] MEDS: VITAMIN B-12 1000 MCG PO (09:00)
[2024-03-03] MEDS: FLOMAX 0.4 MG PO (09:00)
[2024-03-03] MEDS: ASPIR LOW (ENTERIC COATED) 81 MG PO (09:00)
[2024-03-03] MEDS: LIPITOR 10 MG PO (09:01)
--- NOTE | 2024-03-03 09:13 | W.PN.VS ---
Today's Communication / Plan
-
pending podiatry amputation
Assessment/Plan
-
79M POD 1 s/p RLE angio via L femoral approach with non reconstructable disease
-no further vascular intervention
-podiatry for toe amp
Subjective Data
-
Date of Service: March 03, 2024
Pt seen and examined at bedside. NAEO. resting comfortably.
Objective Data
-
Vital Signs
Temp Pulse Resp BP Pulse Ox
98.3 F 74 18 128/70 92
03/03/24 03:46 03/03/24 08:59 03/03/24 03:46 03/03/24 08:59 03/03/24 03:46
Intake and Output
03/02/24 03/03/24 03/04/24
06:59 06:59 06:59
Intake Total 240 / 240 1305 / 1305
Output Total 300 / 300 750 / 750
Balance -60 / -60 555 / 555
Intake:
Oral fluids 120 / 120
IV fluids (Total) 945 / 945
Sterile water with Bicarbonate. 30 / 30
Unasyn 50 / 50
norm 25 / 25
IV piggybacks 240 / 240 240 / 240
Output:
Urine, Voided 300 / 300 750 / 750
Other:
Number of approximated SMALL 1
amounts of urine
Calcium 8.7 mg/dl (8.4-10.2) 03/02/24 06:36
Total Bilirubin 0.6 mg/dl (0.2-1.3) 03/01/24 16:42
AST 24 U/L (17-59) 03/01/24 16:42
ALT < 10 U/L (0-50) 03/01/24 16:42
Alkaline Phosphatase 118 U/L (38-126) 03/01/24 16:42
Total Protein 7.0 g/dl (6.3-8.2) 03/01/24 16:42
Albumin 3.9 g/dl (3.5-5.0) 03/01/24 16:42
Physical Exam
-
Left groin access: C/D/I; no hematoma
--- NOTE | 2024-03-03 09:56 | W.PN.NEPH.PH ---
Today's Communication / Plan
-
labs
Assessment/Plan
-
Assessment
Significant peripheral arterial disease status post angiogram
DARRICK
CKD 3A, 1.2
Hypertension
Hyponatremia chronic
Atrial fibrillation
Plan
I suspect elevation of creatinine may be in part due to Bactrim this has not been discontinued
If creatinine remains elevated or worsens, will need renal ultrasound
Follow BMP
await toe amputation
-
-
Date of Service: March 03, 2024
CC / HPI / ROS
-
Chief Complaint:
DARRICK
History of Present Illness:
DARRICK/Cr 1.6 no labs yet today
BP stable
d/p Agram 03/02
Review of Systems:
no CP/SOB
Labs
-
Labs:
eGFR 43.83 03/02/24 06:36
Albumin 3.9 g/dl (3.5-5.0) 03/01/24 16:42
Physical Exam
-
Vital Signs:
Vital Signs
Temp Pulse Resp BP Pulse Ox
97.3 F 74 18 128/70 93
03/03/24 07:40 03/03/24 08:59 03/03/24 07:40 03/03/24 08:59 03/03/24 07:40
Cardiovascular:: Regular rate and rhythm
Respiratory:: Bilateral: CTA
Lung Excursion:: Normal
Abdomen:: Nontender and Soft
Bowel Sounds:: Normal
Extremity Edema:: None: Bilateral:
[2024-03-03 11:30] VITALS: BP 145/71
--- NOTE | 2024-03-03 12:32 | W.CS.POD ---
Consult Summary - Podiatry
-
79 yo non diabetic male seen in regards to rt 2nd toe osteomyelitic changes and possible toe amputation, he has superficial wound att eh Rt 2nd toe medial aspect , he is in no acute distress, no SOB or chest pain, no fever, chills HE had Rt L/E
angiogram yesterday , He has severe vascular compromise with Rt L/E vessels with plaque/diseased vessels and not a candidate for any bypass procedure as per vascular surgery .
Reviewed PMH, meds and allergies.
Rt Foot non palpable pedal pulses
Rt foot no edema, no erythema noted.
Rt 2nd toe medial aspect superficial ulceration with no drainage, no erythema, no palpable or any exposed bone,
No discoloration or any gangrenous changes noted.
WBC count is WNL.
Xrays shows poor bone mineralization, possible cortical irregularity to the cortex noted distal phalanx.
A/p: Rt 2nd toe ulceration possible osteomyelitis.
PAD with severe plaque - not a candidate for any revascularization per vasc sx
Plan ; I have evaluated patient and discussed in length about all risks, complications and alternatives with toe amputation vs treating conservatively
I have discussed that with toe amputation, more likely non healing. reinfection, more proximal amputations, with risk of BKA.
Discussed conservative option with local wound care and close monitoring of the toe for gangrenous changes, any redness, drainage from the toe. and if any of these happen, he will likely need toe amputation .
Patient understands and , says that he would like to keep the toe and try conservative treatment and see how it goes.
I have d/w hosp service
Patient can follow up in my office after discharge for close monitoring .
No wt bearing restrictions per podiatry
Will order topical mupirocin, dry gauze dressings daily
[2024-03-03 13:50] LABS: Hematocrit 26.6 % (39.0-52.0); Hemoglobin 9.3 g/dL (13.0-18.0); Mean Corpuscular Hgb 28.3 pg (27.0-31.0); Mean Corpuscular Volume 80.9 fL (80.0-94.0); Platelet Count 211 10^3/uL (130-400); Red Blood Cell Count 3.29 10^6/uL (4.70-6.10); Red Cell Dist. Width 13.3 % (11.5-14.5); White Blood Cell Count 12.1 10^3/uL (4.8-10.8)
[2024-03-03 14:04] LABS: Blood Urea Nitrogen 14 mg/dl (9-20); Calcium 8.7 mg/dl (8.4-10.2); Carbon Dioxide 22 mmol/L (22-30); Chloride 95 mmol/L (98-107); Estimated Creatinine Clearance 28 ml/min; Glucose 120 mg/dl (70-99); Potassium 4.2 mmol/L (3.5-5.1); Sodium 129 mmol/L (135-145); eGFR 35.66
[2024-03-03 15:35] VITALS: BP 116/58
--- NOTE | 2024-03-03 17:19 | CON.ID ---
Consultation
-
Date/Time Consultation Requested: March 03, 2024 1614
Date/Time Consultation Performed: March 03, 2024 1640
Requesting Provider: Dr. Claude Vaz
Performing Provider: Dr. Deanne Hull
Reason for Consultation: PAD with possible toe osteo, not candidate for vascularization
Chief Complaint / Past History
Chief Complaint
right second toe wound
History of Present Illness
History obtained from review of medical records as patient is a very poor historian. 79-year-old male with history of dementia, CAD, A-fib, PAD, left CEA, who developed right second toe wound of unknown duration. His PCP sent him for an x-ray on
February 28 which showed possible osteomyelitis. He was therefore directed to come to the ER on January 30. He was started on Unasyn. On March 02 he underwent right lower extremity arteriogram and found to have not reconstructible disease. Podiatry
recommends conservative management at this time. Patient reports no pain. He feels fine. No specific complaints.
Past History
Additional Past Medical History:
Dementia
Atrial fibrillation
CAD status post CABG
Carotid stenosis status post left CEA
PPM placement
AICD placement
PAD
Hemorrhagic CVA
CKD 3
Hernia repair
Allergy History:
No Known Allergies Allergy (Verified 03/01/24 15:27)
Medications Reviewed: Yes
Current Antibiotics:
Unasyn
Social History
Tobacco: Non-Smoker
Alcohol: Occasional
Drug: None
Personal:
Living: With Family
Family History
Family History: Not Pertinent
Review of Systems
Review of Systems
General: Negative Fever, Chills or Change in Appetite
Cardiovascular: Negative Chest Pain or Dyspnea
Respiratory: Negative Dyspnea or Cough
Gasteroenterology: Negative Nausea or Vomiting
Genital / Urological: Negative Dysuria or Flank Pain
Neurological: Negative Headache
All systems: All other systems were reviewed and were negative
Vital Signs
Temp Pulse Resp BP Pulse Ox
97.7 F 72 16 116/58 91
03/03/24 15:35 03/03/24 15:35 03/03/24 15:35 03/03/24 15:35 03/03/24 15:35
Physical Exam
Physical Exam
Constitutional: No Acute Distress
Eyes: No Conjunctival Hemorrhage and Sclera Anicteric
Cardiovascular: Regular Rate, S1/S2 and Other (PPM/ICD site no erythema)
Pulmonary: Clear
Gastrointestinal: Soft, Non Tender, Non Distended and Normal Bowel Sounds
Extremities: Negative Edema
Wound: Other (right second toe distal medial phalanx - dry superficial pink-faith wound without probe to bone, no surrounding erythema, second toe mild duskiness)
Lab / Diagnostic Study Results
03/03/24 13:27
03/03/24 13:27
Abs Immat Gran (auto) 0.0 10^3/uL (0-0.05) 03/01/24 16:42
Absolute Neuts (auto) 5.2 10^3/uL (1.4-6.5) 03/01/24 16:42
Absolute Lymphs (auto) 0.8 10^3/uL (1.2-3.4) L 03/01/24 16:42
Absolute Monos (auto) 0.7 10^3/uL (0.1-0.6) H 03/01/24 16:42
Absolute Basos (auto) 0.1 10^3/uL (0-0.2) 03/01/24 16:42
Immature Gran % 0.3 % (0-0.5) 03/01/24 16:42
Neutrophils % 74.6 % (42.2-75.2) 03/01/24 16:42
Lymphocytes % 11.5 % (20.5-51.1) L 03/01/24 16:42
Monocytes % 9.9 % (1.7-9.3) H 03/01/24 16:42
Eosinophils % 2.3 % (0-6) 03/01/24 16:42
Basophils % 1.4 % (0-2) 03/01/24 16:42
Assessment / Plan
# Right medial 2nd toe chronic ischemic wound
# RLE PAD, not amenable to vascular intervention
# Reactive leukocytosis
- The right second toe wound clinically does not look infected. No cellulitis.
No probing to bone and therefore unlikely osteomyelitis.
- Recommend observe without antibiotic.
- Agree with Podiatry regarding conservative management at this time. Wound is superficial.
Toe amputation warranted if digit turns gangrenous and/or wound deteriorates.
# Conditions [employer]
Dementia
Atrial fibrillation
CAD status post CABG
Carotid stenosis status post left CEA
PPM placement
AICD placement
PAD
Hemorrhagic CVA
CKD 3
Hernia repair
--- NOTE | 2024-03-03 20:49 | W.PN.UPDATE ---
Update Note
Progress Note Update
Patient is agitated and tried to leave AMA, staff not able to redirect, trying to speak to the patient over the phone. Patient has history of dementia and not safe to leave the hospital alone by himself. Spoke to Richard/ the son over the phone
that he mentioned that will not apple picker the patient as he want his dad to received his appropriate treatment.
One time order 0.5 mg Risperdal, recommended med sitter and will get urinalysis.
[2024-03-03] MEDS: RISPERDAL M-TAB (ORALLY DISINTEGRATING) 0.5 MG PO (20:55)
[2024-03-03] MEDS: NSS 1000 IV (22:12)
[2024-03-03 23:48] VITALS: BP 152/79
[2024-03-04] MEDS: UNASYN IV ×2 (03:19→08:44)
[2024-03-04 05:34] VITALS: BMI 20.2
--- NOTE | 2024-03-04 06:59 | W.PN.HOSP.TC ---
Addendum entered and electronically signed by Claude Vaz MD 03/04/24 09:11:
Pleural Effusion noted on CXR progressed from prior imaging 2019
-Stable respiratory status on room air
-ambulating with walker without issues
-No significant signs of systemic infection
-outpatient follow up with pulmonology recommended along with repeat CXR (script provided to facilitate)
Noted Nephro recommendations for IVF
-patient unwilling to stay, at capacity to make his own decisions at this time
-Cr trending down
-repeat BMP with primary care provider recommended following discharge.
Original Note:
Today's Communication/Plan
-
discharge
Assessment / Plan
Assessment / Plan
Physical Exam
General: No acute distress
HEENT: Moist mucous membranes and PERRLA
Respiratory: Clear; No Wheezes, Rales or Rhonchi
Cardiac: S1/S2, Regular Rhythm and Murmur (II/ JACOB)
GI: Soft, Non Tender, Non Distended and Normal Bowel Sounds
Musculoskeletal: No Clubbing, No Cyanosis, no edema
Neuro: Awake and Alert conversant
A/P: Patient is a 79y M with PMH significant for ASCVD, A-Fib and prior hemorrhagic CVA who presents to ED for evaluation of R 2nd toe swelling with suspected osteomyelitis.
Right 2nd Toe Ulceration
- ID eval appreciated monitor off abx, empiric Unasyn discontinued
- Podiatry consult appreciated conservative mgmt recommended
- Vascular Surgery eval appreciated
- No significant pain. No systemic symptoms of infection / sepsis.
ASCVD
- History of CAD s/p CABG, prior CEA and history of hemorrhagic CVA.
- No chest pain or other symptoms at present.
- Continue ASA, statin, etc.
- Vasc eval as noted above.
Chronic Hyponatremia
- Fluid restriction
- Hold Lexapro.
- Nephrology eval appreciated
Chronic Atrial Fibrillation
- Not on OAC given prior history of hemorrhagic stroke.
- s/p PPM and AICD.
- Continue baby ASA.
Renal Insufficiency (DARRICK v CKD)
- Nephro eval appreciated suspected DARRICK d/t prior bactrim use
-Trend Cr, improving
Normocytic Anemia
- No gross evidence of blood loss.
- H&H stable
-Iron wnl
-B12 deficiency noted, started on supplementation
Benign Hypertension
- Stable. Continue nifedipine with holding parameters.
Senile Dementia with Depression
- Stable. Continue gabapentin. Hold Lexapro for now as noted above.
- Follow for acute delirium / decompensation during hospital stay.
- Some agitation noted overnight 03/03 received once risperidone without much effect
-03/04 AOx2 (reported year as 2022 instead of 2023) patient otherwise able to verbalize understanding consequences of his decisions, appears to have capacity at this time.
DVT Prophylaxis: SCDs
Code Status: Full
Medically stable for discharge home with home services and outpatient follow up recommendations.
Total Time Preparing Discharge ___50____ minutes including examination of the patient, summary of the hospital stay, instructions for continuing care to all relevant caregivers; and preparation of discharge records, prescriptions, and referral
forms if necessary.
Anticipated Discharge: Today
Subjective/Interval History
-
Date of Service: March 04, 2024
Seen and examined at bedside in no acute distress. AOx3, anxious to go home. Denies new acute issues at this time.
Objective Data
-
Labs:
Laboratory Results
03/04/24
06:00
WBC Pending
Hgb Pending
Hct Pending
Plt Count Pending
Sodium Pending
Potassium Pending
Chloride Pending
Carbon Dioxide Pending
BUN Pending
Creatinine Pending
Glucose Pending
Calcium Pending
Vital Signs:
Vital Signs
Temp Pulse Resp BP Pulse Ox
97.3 F 85 16 152/79 95
03/03/24 23:48 03/03/24 23:48 03/03/24 23:48 03/03/24 23:48 03/03/24 23:48
I&O
03/02/24 03/03/24 03/04/24
06:59 06:59 06:59
Intake Total 240 / 240 1305 / 1305 1080 / 1080
Output Total 300 / 300 750 / 750 800 / 800
Balance -60 / -60 555 / 555 280 / 280
[2024-03-04 07:40] VITALS: BP 137/75
[2024-03-04 07:56] LABS: Hematocrit 29.1 % (39.0-52.0); Mean Corp Hgb Conc. 34.4 g/dL (33.0-37.0); Mean Corpuscular Hgb 28.4 pg (27.0-31.0); Mean Corpuscular Volume 82.7 fL (80.0-94.0); Mean Platelet Volume 8.9 fL (7.4-10.4); Platelet Count 204 10^3/uL (130-400); Red Blood Cell Count 3.52 10^6/uL (4.70-6.10); Red Cell Dist. Width 13.6 % (11.5-14.5); White Blood Cell Count 9.8 10^3/uL (4.8-10.8)
[2024-03-04 08:07] LABS: Blood Urea Nitrogen 14 mg/dl (9-20); Calcium 8.8 mg/dl (8.4-10.2); Carbon Dioxide 23 mmol/L (22-30); Chloride 100 mmol/L (98-107); Estimated Creatinine Clearance 32 ml/min; Glucose 84 mg/dl (70-99); Magnesium 1.8 mg/dl (1.6-2.3); Phosphorus 2.9 mg/dl (2.5-4.5); Potassium 3.9 mmol/L (3.5-5.1); Sodium 132 mmol/L (135-145); eGFR 43.83
[2024-03-04] MEDS: ASPIR LOW (ENTERIC COATED) 81 MG PO (08:43)
[2024-03-04] MEDS: FLOMAX 0.4 MG PO (08:43)
[2024-03-04] MEDS: LIPITOR 10 MG PO (08:43)
[2024-03-04] MEDS: NEURONTIN 300 MG PO (08:43)
[2024-03-04] MEDS: PROCARDIA XL (EXTENDED RELEASE) 30 MG PO (08:43)
[2024-03-04] MEDS: PROTONIX 40 MG PO (08:43)
[2024-03-04] MEDS: VITAMIN B-12 1000 MCG PO (08:43)
--- NOTE | 2024-03-04 08:59 | W.PN.NEPH.PH ---
Today's Communication / Plan
-
IV fluids
Assessment/Plan
-
Assessment
Significant peripheral arterial disease status post angiogram
DARRICK
CKD 3A, 1.2
Hypertension
Hyponatremia chronic
Atrial fibrillation
Plan
I suspect elevation of creatinine may be in part due to Bactrim this has not been discontinued
Continue IV fluids for now
Follow BMP
Possible toe amputation though this may be difficult with patient's dementia
-
-
Date of Service: March 04, 2024
CC / HPI / ROS
-
Chief Complaint:
DARRICK
History of Present Illness:
DARRICK/Cr down to 1.6
BP stable
s/p Agram 03/02
Review of Systems:
no CP/SOB
Angry about not being able to leave
Not eating
Labs
-
Labs:
WBC 9.8 10^3/uL (4.8-10.8) 03/04/24 07:33
RBC 3.52 10^6/uL (4.70-6.10) L 03/04/24 07:33
Hgb 10.0 g/dL (13.0-18.0) L 03/04/24 07:33
Hct 29.1 % (39.0-52.0) L 03/04/24 07:33
Plt Count 204 10^3/uL (130-400) 03/04/24 07:33
Sodium 132 mmol/L (135-145) L 03/04/24 07:33
Potassium 3.9 mmol/L (3.5-5.1) 03/04/24 07:33
Chloride 100 mmol/L (98-107) 03/04/24 07:33
Carbon Dioxide 23 mmol/L (22-30) 03/04/24 07:33
BUN 14 mg/dl (9-20) 03/04/24 07:33
Creatinine 1.6 mg/dL (0.7-1.3) H 03/04/24 07:33
eGFR 43.83 03/04/24 07:33
Glucose 84 mg/dl (70-99) 03/04/24 07:33
Calcium 8.8 mg/dl (8.4-10.2) 03/04/24 07:33
Phosphorus 2.9 mg/dl (2.5-4.5) 03/04/24 07:33
Albumin 3.9 g/dl (3.5-5.0) 03/01/24 16:42
Physical Exam
-
Vital Signs:
Vital Signs
Temp Pulse Resp BP Pulse Ox
97.4 F 73 16 140/86 92
03/04/24 07:40 03/04/24 08:43 03/04/24 07:40 03/04/24 08:43 03/04/24 07:40
Cardiovascular:: Regular rate and rhythm
Respiratory:: Bilateral: Coarse
Lung Excursion:: Normal
Abdomen:: Nontender and Soft
Bowel Sounds:: Normal
Extremity Edema:: None: Bilateral:
--- NOTE | 2024-03-04 09:00 | W.DCSUMMARY ---
Discharge Summary
Discharge Data
Date of Admission: 03/01/24
Date of Discharge: 03/04/24
-
Pending Results: No
Discharge Plan
-
Patient Disposition: Home with Home Care
Discharge Diagnosis/Procedures: Right 2nd Toe Ulceration
Chronic Hyponatremia mild
Chronic Atrial Fibrillation
Acute Kidney Injury Resolving
Normocytic Anemia
B12 deficiency
Hypertension
Senile Dementia with Depression
Pleural effusion
Condition: Fair
Diet: As tolerated and Restrict fluids to 48 oz
Activity: No strenuous activity
Driving Restrictions: Not until seen by your Dr
Bathing Restrictions: None
Blood Work: please repeat CBC and BMP with primary care provider in 1 week of discharge. Vitamin B12 level in 1 month of discharge.
Others Tests: repeat CXR with primary care provider or pulmonology in 2 weeks of discharge
Other Services: VN, PT and OT
Activity Restrictions/Additional Instructions:
Please follow up with primary care provider and podiatry in 1 week of discharge, keep your appointment with vascular surgery and follow up with pulmonology in 2 weeks of discharge.
Vitamin B12 has been prescribed for Vitamin B12 deficiency.
Mupirocin has been prescribed for toe wound/ulceration apply daily with dry gauze dressings.
Please take medications as prescribed/recommended and follow up with primary care provider and/or other healthcare provider involved in your care for refills and/or further adjustment to your medication regimen as necessary.
Stand Alone Forms: DC Instr - Vascular OR
Referrals:
Romelia Johnson CRNP [Family Provider] - in one week
Jonathan Garcia MD [Active] - 03/16/24 4:00 pm
Sydney Owens DPM [Specified Professional Personl] - in one week
Silvestre Saenz MD [Active] - in two weeks
Prescriptions:
New
mupirocin 2 % Ointment
1 applic topical BID Qty: 22 0RF
cyanocobalamin (vitamin B-12) 1,000 mcg Tablet
1,000 mcg PO DAILY 30 Days Qty: 30 0RF
Continued
pantoprazole 40 mg tablet,delayed release (DR/EC)
40 mg PO DAILY
escitalopram oxalate 5 mg tablet
5 mg PO DAILY
melatonin 5 mg Tablet
5 mg PO HSPRN PRN (Reason: sleep)
atorvastatin 10 MG tablet
10 mg PO DAILY Qty: 90 0RF
nifedipine 30 MG tablet extended release
30 mg PO DAILY Qty: 30 0RF
aspirin 81 MG tablet,delayed release (DR/EC)
81 mg PO DAILY Qty: 30 0RF
tamsulosin 0.4 MG capsule
0.4 mg PO DAILY Qty: 90 0RF
gabapentin 300 MG capsule
300 mg PO BID Qty: 180 0RF
Discontinued
sulfamethoxazole-trimethoprim 800-160 mg tablet
1 tab PO BID
Discharge Orders:
Discharge Patient (As Directed); Ordered 03/04/24
Ordered By: Claued Vaz
Discharge Date and Time
Print Language: KYRGYZ
--- NOTE | 2024-03-04 10:04 | CM ---
CM reviewed chart and noted dc order
Pt left prior to CM meeting with him- insistent on early dc
Call with spouse at home
They reside together in a [address]
Pt ambulates with WW and spouse assists with ADLs
PCP- Romelia Johnson
Referral made to [facility] via [facility]
VN on chart
IMM not issued as pt discharged prior to CM meeting with him
Discharge Disposition- home with [facility]
== END 2024-03-04 09:15 | disposition home health service (06) | DRG 580 ==
LOC: 4 EAST ACU 20:20
PROVIDERS: Emergency Medicine; Nurse Practitioner; ADMITTING PHYSICIAN Hospitalist; ATTENDING PHYSICIAN Internal Medicine; CONSULT PHYSICIAN Internal Medicine Infectious Disease; EMERGENCY PHYSICIAN Emergency Medicine; FAMILY PHYSICIAN Nurse Practitioner Family; OTHER PHYSICIAN Podiatrist Foot & Ankle Surgery; OTHER PHYSICIAN Specialist; OTHER PHYSICIAN Surgery Vascular Surgery
PROC: B4101ZZ Fluoroscopy of Abdominal Aorta using Low Osmolar Contrast (ICD-10-PCS; 2024-03-02)
PROC: 047M3ZZ Dilation of Right Popliteal Artery, Percutaneous Approach (ICD-10-PCS; 2024-03-02)
PROC: 047L3ZZ Dilation of Left Femoral Artery, Percutaneous Approach (ICD-10-PCS; 2024-03-02)
DX: L97.519 Non-pressure chronic ulcer of other part of right foot with unspecified severity (principal); E87.1 Hypo-osmolality and hyponatremia; I48.20 Chronic atrial fibrillation, unspecified; N17.9 Acute kidney failure, unspecified; F03.93 Unspecified dementia, unspecified severity, with mood disturbance; M86.9 Osteomyelitis, unspecified; Z79.01 Long term (current) use of anticoagulants; I70.221 Atherosclerosis of native arteries of extremities with rest pain, right leg; I10 Essential (primary) hypertension; I25.10 Atherosclerotic heart disease of native coronary artery without angina pectoris; I48.91 Unspecified atrial fibrillation; N18.31 Chronic kidney disease, stage 3a
CPT/HCPCS: 36247; 71046; 75625; 75716; 80048; 80053; 82570; 82607; 83540; 83550; 83735; 83935; 84100; 84300; 85025; 85027; 93005; 93922; 96365; 99285; C1769; C1887; C1894; Q9967

== ENCOUNTER 2024-03-19 16:08 | Inpatient (IN) | payer OTHER, SELFPAY ==
[2024-03-19 12:25] VITALS: BP 152/75
[2024-03-19 12:42] LABS: % Basophils 1.4 % (0-2); % Eosinophils 3.8 % (0-6); % Immature Granulocytes 0.1 % (0-0.5); % Monocytes 7.1 % (1.7-9.3); % Neutrophils 73.6 % (42.2-75.2); Absolute Basophils 0.1 10^3/uL (0-0.2); Absolute Eosinophils 0.3 10^3/uL (0-0.7); Absolute Monocytes 0.5 10^3/uL (0.1-0.6); Absolute Neutrophils 5.3 10^3/uL (1.4-6.5); Hemoglobin 11.2 g/dL (13.0-18.0); Mean Corpuscular Hgb 28.7 pg (27.0-31.0); Mean Corpuscular Volume 82.1 fL (80.0-94.0); Mean Platelet Volume 9.2 fL (7.4-10.4); Nucleated Red Blood Cells % 0 % (-); Platelet Count 228 10^3/uL (130-400); Red Cell Dist. Width 13.9 % (11.5-14.5); White Blood Cell Count 7.2 10^3/uL (4.8-10.8)
[2024-03-19 13:01] LABS: ALT (SGPT) < 10 U/L (0-50); AST (SGOT) 24 U/L (17-59); Alkaline Phosphatase 142 U/L (38-126); Blood Urea Nitrogen 8 mg/dl (9-20); Calcium 8.7 mg/dl (8.4-10.2); Carbon Dioxide 21 mmol/L (22-30); Chloride 100 mmol/L (98-107); Glucose 106 mg/dl (70-99); Sodium 130 mmol/L (135-145); Total Bilirubin 0.9 mg/dl (0.2-1.3); Total Protein 7.1 g/dl (6.3-8.2); eGFR 56.23
[2024-03-19 13:09] LABS: Potassium 3.4 mmol/L (3.5-5.1)
--- NOTE | 2024-03-19 13:42 | ED.MUSCINJ ---
HPI-Injury
General
Chief Complaint: Musculo-Skeletal Complaint
Source: patient, spouse and other (Dr. Owens)
Exam Limitations: none
Time Seen by Provider: 03/19/24 13:26
Nursing documentation reviewed up to this point in time: agreed with
History of Present Illness-Injury
Is this injury a work related problem?: No
Is pt an associate of [facility]?: No
Initial Injury comments:
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 States he is being scheduled for amputation of toe. Dr. Owens notified by tiger text and confirms. Requests admission to hospitalist, planning for
surgery tomorrow. He was discharge from on 03/04. Had vascular consult at that time, significant PAD, revascularization not recommended. Conservative tx was recommended. Since discharge, right medial 2nd toe ulceration continues to expand.
Advised of need to amputate. Patient is awake and alert, in not distress. Denies fever/chills.
Past History
Past History
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
right temporoparietal)
ED Past Surgical History: Cardiac (AICD) and Other (Left carotid endarterectomy March 2019)
Social History
Tobacco: Non-smoker
Alcohol: None
Drug: None
Personal:
Living: with family
Employment: Retired
Family History
Family History: Unable to obtain
Review of Systems
Review of Systems
Allergies reviewed?: Yes
All Other Systems: ROS reviewed and negative except as documented in HPI and ROS
Constitutional: Reports no symptoms
EENT: Reports no symptoms
Respiratory: Reports no symptoms
Cardiac: Reports no symptoms
ABD/GI: Reports no symptoms
Musculoskeletal: Reports joint pain (right medial 2nd toe osteomyelitis)
Skin: Reports other (right medial 2nd toe ulceration)
Neurological: Reports no symptoms
Psychiatric: Reports no symptoms
Musculoskeletal Injury Exam
Musculoskeletal Injury Exam
Right Medial Second Toe:
Pain with Movement?: None
Tender to palpation?: Mild
Soft tissue swelling?: Mild
External deformity and angulation?: None
Joint effusion?: None
Contusion?: None
Hematoma-local bleeding into tissue?: None
Strain- Sprain- Tear (Connective tissue injury)?: None
Crepitus with movement?: No
Joint instability?: No
Malalignment/deformity?: No
Range of motion: Limited
Distal skin color and temperature: normal-warm & good color
Capillary Refill: normal
Normal distal neurovascular exam?: Yes
Phy Exam
General Physical Exam
General Presentation: well appearing and no apparent distress
General age: appears stated age
General Skin: warm and dry
General Habitus: normal
General Mental: alert
Cardiovascular Exam
Cardiovascular Exam: regular rate/rhythm and no edema
Pulmonary Exam
Pulmonary Exam: no respiratory distress
Musculoskeletal Exam
Musculoskeletal Exam: other (osteomyelitis right 2nd toe)
Skin Exam
Skin Exam: normal color, warm/dry and other (right medial 2nd toe ulceration)
Psychiatric Exam
Psychiatric Exam: normal mood/affect
Injury Course
Orders/Labs/Results
Orders:
Orders
03/19/24 12:34
CMP [Comprehensive Metabolic Panel] Urgent
Complete Blood Count/With Diff Urgent
Glycohemoglobin (HgbA1c) Urgent
03/19/24 Dinner
Cholesterol Lowering
At Your Request: Limited Participation
Fluid Restriction: 1440 mL/day (48 oz)
03/19/24 15:21
Consult Podiatry [PODIATRY CONSULT] Urgent
Consulting Provider: Sydney Owens
Was physician already notified: Yes
03/19/24 15:31
Admit/Transfer Patient As Directed
Co-Sign Provider:
Level of Care: Inpatient admission
Assign to:: Medical/Surgical
Physician / Group: angelita blakely
Diagnosis: Right 2nd toe ulcer
Reason for Hospitalization: Right 2nd toe ulcer
Expected length of stay greater than two midnights?: Yes
ELOS- Estimated Length of Stay in days: 2
I certify the patient meets the requirements for IP care: Yes
PRN Pain Medication Management As Directed
May give lesser potent ordered pain med per pt: Yes
preference::
Protocol:: Medication orders for pain may be administered in a
manner that supports deferring to patient preference
when the pt is:
- Requesting an ordered lesser potent pain medication.
Least to most potent pain medications are defined
as: acetaminophen < NSAID < tramadol < opioids
(morphine, oxycodone, hydromorphone).
- Requesting a lesser dose of the same medication IF
ORDERED.
- Requesting a less intrusive route of administration
if both routes are prescribed by the provider (PO <
IV).
03/19/24 15:34
Code Status As Directed
Resuscitation Status: Full Code
03/19/24 17:25
Acetaminophen [Tylenol] 650 mg PO Q4HPRN PRN
Ondansetron Injectable [Zofran] 4 mg IV Q6HPRN PRN
Oxycodone [Roxicodone] 5 mg PO Q4HPRN PRN
03/19/24 17:25
Activity As Directed
Activity Level: Ambulate
Vital Signs As Directed
Frequency: Per unit guidelines
Ot Eval And Treat Routine
Pt Eval And Treat Routine
Activity Level: Ambulate
DX Deep Vein Thrombosis Video Routine
03/19/24 18:00
Enoxaparin Sodium [Lovenox] 40 mg SC QPM
03/19/24 20:00
Gabapentin [Neurontin] 300 mg PO BID
Mupirocin [Bactroban 2% Ointment] See Dose Instructions TOPICAL BID
Sennosides [Senokot] 8.6 mg PO BID
03/19/24 22:00
Melatonin 5 mg PO HS
03/20/24 06:00
Basic Metabolic Panel IN AM
Complete Blood Count/No Diff IN AM
Prothrombin Time IN AM
03/20/24 08:00
Aspirin Low Dose EC [Aspir Low (Enteric Coated)] 81 mg PO DAILY
Atorvastatin [Lipitor] 10 mg PO DAILY
Escitalopram Oxalate [Lexapro] 5 mg PO DAILY
NIFEdipine EXTENDED RELEASE [Procardia Xl (Extended Release)] 30 mg PO DAILY
Pantoprazole [Protonix] 40 mg PO DAILY
Polyethylene Glycol Powder [Miralax] 17 grams PO DAILY
Tamsulosin [Flomax] 0.4 mg PO DAILY
Abnormal Lab Results
03/19/24
12:34
RBC 3.90 L 10^6/uL
(4.70-6.10)
Hgb 11.2 L g/dL
(13.0-18.0)
Hct 32.0 L %
(39.0-52.0)
Absolute Lymphs (auto) 1.0 L 10^3/uL
(1.2-3.4)
Lymphocytes % 14.0 L %
(20.5-51.1)
Sodium 130 L mmol/L
(135-145)
Potassium 3.4 L mmol/L
(3.5-5.1)
Carbon Dioxide 21 L mmol/L
(22-30)
BUN 8 L mg/dl
(9-20)
Glucose 106 H mg/dl
(70-99)
Alkaline Phosphatase 142 H U/L
(38-126)
03/19/24 12:34
03/19/24 12:34
*Pulse Oximetry
Patient hypoxic: no
*Critical Care Note
Total Time (30-74mins, 75-104mins- exclusive of procedures): Not Applicable
Update Note
Update Note:
Archbold text sent to Dr. Owens. Requesting admission to hospitalist. Plan for surgery tomorrow afternoon..
ED Attending Note
-
Portions of this chart may have been created with voice recognition software.� Occasional wrong word or��sound alike� substitutions may have occurred due to the inherent limitations of voice recognition software.
Discharge Plan
Departure
Patient Disposition: Admit
Date of Disposition: 03/19/24
Time of Disposition: 13:51
Presentation/result/management discussed w/ accepting MD/DO: Hospitalist
Patient with high blood pressure during this ER visit?: No
Condition: Fair
Covid-19: Not Applicable
Discharge Problem:
Osteomyelitis of toe
Interventions
Interventions:
*Risk Screen - Suicide Last Done: 03/19/24 18:20
*General Assessment Last Done: 03/19/24 12:25
*ED COVID-19 Vaccine History Last Done: 03/19/24 12:25
*Nursing Disposition Last Done: 03/19/24 17:45
ED-Musculoskeletal Assessment Last Done: 03/19/24 15:30
Discharge Date and Time
Discharge Date/Time: 03/19/24 18:00
--- NOTE | 2024-03-19 15:13 | HPS.HSE ---
Family Physician
-
Family Physician: Julián Tello
Chief Complaint
-
Sent in by podiatry for amputation
History of Present Illness
79-year-old male with a past medical history of right second toe osteomyelitis, atrial fibrillation, CAD, CHF, CVA, hypertension, hyperlipidemia, chronic kidney disease, and diabetes was sent by his special effects designer for admission to have an amputation of
his right second toe. Patient was recently treated from [facility] for right second toe osteomyelitis, discharged on 03/04/2024. Currently, he denies pain of his toe. Denies chest pain, shortness of breath, or palpitations. No fever, no
vomiting.
Medical History
Past Medical History
Past Medical History: Reports Other
Additional Past Medical History:
ASCVD (CAD, Carotid Stenosis)
Chronic Atrial Fibrillation
Hemorrhagic CVA (2020)
Hypertension
Dementia / Depression
Chronic Hyponatremia
CKD III
Past Surgical History: Reports Other
Additional Past Surgical History:
Herniorrhaphy
CABG
PPM / AICD Placement
Left CEA
Social History
Tobacco: Non-smoker
Alcohol: Occasional
Drug: None
Personal:
Living: With Family
Family History
Family History: Not pertinent
Allergies / Home Medications
Allergies reflects when Allergies were last updated in [facility].
Home Medications with original date entered in [facility]
Allergy/Medication List:
Allergies
Allergy/AdvReac Type Severity Reaction Status Date / Time
No Known Allergies Allergy Verified 03/19/24 12:28
Home Medications Table - record
�Medication �Instructions �Recorded �Confirmed
aspirin 81 mg tablet,delayed 81 mg PO DAILY #30 tabs 10/14/20 03/19/24
release
atorvastatin 10 mg tablet 10 mg PO DAILY #90 tabs 10/14/20 03/19/24
gabapentin 300 mg capsule 300 mg PO BID #180 caps 10/14/20 03/19/24
nifedipine 30 mg tablet,extended 30 mg PO DAILY #30 tabs 10/14/20 03/19/24
release
tamsulosin 0.4 mg capsule 0.4 mg PO DAILY #90 caps 10/14/20 03/19/24
escitalopram oxalate 5 mg tablet 5 mg PO DAILY depression/anxiety 03/01/24 03/19/24
melatonin 5 mg tablet 5 mg PO HS 03/01/24 03/19/24
pantoprazole 40 mg tablet,delayed 40 mg PO DAILY Gastrointestinal 03/01/24 03/19/24
release Issue
mupirocin 2 % topical ointment 1 applic topical BID TOE WOUND 03/19/24 03/19/24
Review of Systems
-
A 12 point ROS was completed and negative except as noted: Yes
Physical Exam
Vital Signs
Vital Signs
Pulse Resp BP Pulse Ox
70 16 152/75 95
03/19/24 12:25 03/19/24 12:25 03/19/24 12:25 03/19/24 12:25
Physical Exam
General: No Apparent Distress
HEENT: NormoCephalic, Anicteric and Moist mucous membranes
Respiratory: Clear
Cardiac: S1/S2 and Regular Rhythm
GI: Soft, Non Tender, Non Distended and Normal Bowel Sounds
Musculoskeletal: No Clubbing, No Cyanosis and No Edema
Skin: Other (Ulcer noted on right second toe)
Neuro: Awake and Alert
Psych: Calm
Laboratory Results
-
03/19/24 12:34
03/19/24 12:34
Laboratory Results
Total Bilirubin 0.9 mg/dl (0.2-1.3) 03/19/24 12:34
AST 24 U/L (17-59) 03/19/24 12:34
ALT < 10 U/L (0-50) 03/19/24 12:34
Alkaline Phosphatase 142 U/L (38-126) H 03/19/24 12:34
Impression/Plan
-
HPI: 79-year-old male with a past medical history of right second toe osteomyelitis, atrial fibrillation, CAD, CHF, CVA, hypertension, hyperlipidemia, chronic kidney disease, and diabetes was sent by his special effects designer for admission to have an
amputation of his right second toe. Patient was recently treated from [facility] for right second toe osteomyelitis, discharged on 03/04/2024. Currently, he denies pain of his toe. Denies chest pain, shortness of breath, or palpitations.
No fever, no vomiting.
#Nonhealing ulcer on right second toe
Podiatry consulted, planning for amputation on 03/21/2024 late afternoon
N.p.o. after breakfast on 03/21/2024
#Peripheral artery disease
Continue aspirin, statin
#Chronic hyponatremia
Fluid restrict, trend sodium
#Hypokalemia
Replete, recheck in a.m. potassium
#Dementia, unknown type
#History of diabetes
Check hemoglobin A1c
#Benign essential hypertension
Continue nifedipine
#Anxiety/depression
Continue SSRI
DVT prophylaxis�subcu Lovenox
Full code
[2024-03-19 15:30] VITALS: BP 148/80; BMI 20.5
[2024-03-19 17:44] VITALS: BP 149/81; BMI 20.1
--- NOTE | 2024-03-19 18:14 | W.CS.POD ---
Addendum entered and electronically signed by Sydney Owens DPM 03/21/24 12:33:
Addendum to Assessment : Rt 2nd toe chronic osteomyelitis
Original Note:
Consult Summary - Podiatry
-
79 yo male known to myself from previous hosp admission, he is non diabetic and has severe PAD with no blood flow to the Rt foot has rt 2nd toe medial aspect wound with osteomyelitic changes , he underwent angiogram on 03/02/24 , has severe stenosed
vessels with no endovascular options . patient and his wanted to see if any improvement with local wound care so he was d/c ed 2 wks ahgo from [facility], When he f/u in my clinic last Tuesday , toe appeared to have more slough and no improvement
so i have asked him to get admitted for possible toe amputation, PAtient and his also d/w Dr. Garcia last Tuesday and decided to go with toe amputation, he is in no acute distress, no SOB or chest pain, no fever, chills Reviewed PMH, meds and
allergies.
Exam : Rt Foot non palpable pedal pulses
Rt foot no edema, no erythema noted.
Rt 2nd toe medial aspect superficial ulceration with no drainage, no erythema, palpable bone at the ulcer site.
No discoloration or any gangrenous changes noted.
WBC count is WNL.
Last admission Xrays shows poor bone mineralization, possible cortical irregularity to the cortex noted distal phalanx.
A/p: Rt 2nd toe ulceration with osteomyelitis.
PAD with severe plaque - not a candidate for any revascularization per vasc sx
Plan ; I have evaluated patient, due to exposed bone at the Rt 2nd toe , will likely need toe amputation
I have discussed all risks and complications with toe amputation, more likely non healing. reinfection, more proximal amputations, with risk of BKA.
Patient and his ([place] ) understands and , says that they would like to proceed with toe amputation
I have d/w hosp service
I have answered all questions to the best of my knowledge.
Since OR is not available tomorrow 03/20 with cases over load, scheduled him on 03/21/24 for Rt 2nd toe amputation
[2024-03-19] MEDS: KCL 20 MEQ PO (18:20)
[2024-03-19] MEDS: LOVENOX 40 MG SC (18:20)
[2024-03-19] MEDS: SENOKOT 8.6 MG PO (20:40)
[2024-03-19] MEDS: MELATONIN 5 MG PO (20:40)
[2024-03-19] MEDS: BACTROBAN 2% OINTMENT 1 APPLIC TOPICAL (20:40)
[2024-03-19] MEDS: NEURONTIN 300 MG PO (20:40)
[2024-03-19 23:00] VITALS: BP 154/82
[2024-03-20 06:00] VITALS: BMI 20.6
[2024-03-20 07:00] VITALS: BP 159/75
[2024-03-20 07:23] LABS: INR 1.11; PT 14.1 Sec (11.4-14.6)
[2024-03-20 07:24] LABS: Hematocrit 34.3 % (39.0-52.0); Hemoglobin 11.9 g/dL (13.0-18.0); Mean Corp Hgb Conc. 34.7 g/dL (33.0-37.0); Mean Corpuscular Hgb 28.5 pg (27.0-31.0); Mean Corpuscular Volume 82.3 fL (80.0-94.0); Platelet Count 242 10^3/uL (130-400); Red Blood Cell Count 4.17 10^6/uL (4.70-6.10); Red Cell Dist. Width 13.8 % (11.5-14.5); White Blood Cell Count 7.5 10^3/uL (4.8-10.8)
[2024-03-20 07:56] LABS: Blood Urea Nitrogen 7 mg/dl (9-20); Calcium 9.1 mg/dl (8.4-10.2); Carbon Dioxide 22 mmol/L (22-30); Chloride 99 mmol/L (98-107); Estimated Creatinine Clearance 44 ml/min; Glucose 93 mg/dl (70-99); Potassium 4.2 mmol/L (3.5-5.1); Sodium 132 mmol/L (135-145); eGFR > 60.00
--- NOTE | 2024-03-20 08:32 | VNURNOTE ---
Chart reviewed. Patient is current with [facility]. Will continue to follow hospital course.
--- NOTE | 2024-03-20 08:36 | W.PN.HOSP.TC ---
Today's Communication/Plan
-
For right second toe amputation late afternoon tomorrow
Assessment / Plan
Assessment / Plan
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
amputation of his right second toe. Patient was recently treated from [facility] for right second toe osteomyelitis, discharged on 03/04/2024. Currently, he denies pain of his toe. Denies chest pain, shortness of breath, or palpitations.
No fever, no vomiting.
#Nonhealing ulcer on right second toe
Podiatry consulted, planning for amputation on 03/21/2024 late afternoon
N.p.o. after breakfast on 03/21/2024
#Peripheral artery disease
Continue aspirin, statin
#Chronic hyponatremia
Fluid restrict, trend sodium
#Hypokalemia
Repleted and resolved
#Dementia, unknown type
Appears at baseline
#History of diabetes
Check hemoglobin A1c
#Benign essential hypertension
Continue nifedipine
#Anxiety/depression
Continue SSRI
DVT prophylaxis�subcu Lovenox
Full code
Total time spent to see the patient on the floor, examine the patient, review data and lab results, discuss treatment plan with patient, nursing staff around 38 minutes.
Physical Exam
General: No Apparent Distress
HEENT: NormoCephalic, Anicteric and Moist mucous membranes
Respiratory: Clear
Cardiac: S1/S2 and Regular Rhythm
GI: Soft, Non Tender, Non Distended and Normal Bowel Sounds
Musculoskeletal: No Clubbing, No Cyanosis and No Edema
Skin: Other (Ulcer noted on right second toe)
Neuro: Pleasantly confused
Psych: Calm
Anticipated Discharge: 24 - 48 hours
Subjective/Interval History
-
Date of Service: March 20, 2024
Patient denies pain. No shortness of breath, no fever, no vomiting.
Objective Data
-
Labs:
Laboratory Results
03/20/24
06:30
WBC 7.5
Hgb 11.9 L
Hct 34.3 L
Plt Count 242
PT 14.1
INR 1.11
Sodium 132 L
Potassium 4.2
Chloride 99
Carbon Dioxide 22
BUN 7 L
Creatinine 1.2
Glucose 93
Calcium 9.1
Vital Signs:
Vital Signs
Temp Pulse Resp BP Pulse Ox
97.2 F 62 14 159/75 98
03/20/24 07:00 03/20/24 07:00 03/20/24 07:00 03/20/24 07:00 03/20/24 07:00
I&O
03/19/24 03/20/24 03/21/24
06:59 06:59 06:59
Intake Total 1080 / 1080
Output Total 300 / 300 525 / 525
Balance 780 / 780 -525 / -525
[2024-03-20] MEDS: PROCARDIA XL (EXTENDED RELEASE) 30 MG PO (08:42)
[2024-03-20] MEDS: LEXAPRO 5 MG PO (08:42)
[2024-03-20] MEDS: NEURONTIN 300 MG PO ×2 (08:43→20:54)
[2024-03-20] MEDS: PROTONIX 40 MG PO (08:43)
[2024-03-20] MEDS: LIPITOR 10 MG PO (08:43)
[2024-03-20] MEDS: ASPIR LOW (ENTERIC COATED) 81 MG PO (08:43)
[2024-03-20] MEDS: SENOKOT 8.6 MG PO ×2 (08:43→20:54)
[2024-03-20] MEDS: FLOMAX PO (08:57)
[2024-03-20] MEDS: MIRALAX PO (08:58)
[2024-03-20] MEDS: BACTROBAN 2% OINTMENT 1 APPLIC TOPICAL ×2 (09:08→20:57)
--- NOTE | 2024-03-20 10:16 | PN.CDI ---
CDI
- -
CDI:
Physician Documentation Request
Admit Date: 03/19/24 16:08
Dear Doctor Roman,
03/19 Podiatry Consult: 'has severe PAD with no blood flow to the Rt foot has rt 2nd toe medial aspect wound with osteomyelitic changes...he was d/c ed 2 wks ahgo from [facility], When he f/u in my clinic last Tuesday , toe appeared to have more slough
and no improvement...decided to go with toe amputation'
Clarify which of the following accurately represents the acuity of the osteomyelitis. Possible options might include:
Acute
Chronic
Other
Use of terms such as suspected, likely, concern for, or probable (associated with a specific diagnosis that is being evaluated, monitored, or treated as if it exists) are acceptable and can be coded in the inpatient setting, when documented at the
time of discharge.
Thank you,
Jessica Shah RN, BSN
CDI Specialist
Available via [place] text
Please use your independent medical judgment in providing your response.
[2024-03-20 11:12] LABS: Glycohemoglobin (HgbA1c) 5.6 % (4.0-5.6)
--- NOTE | 2024-03-20 12:36 | WOUNDNOTE ---
R 2ND TOE MEDIAL
--- NOTE | 2024-03-20 12:40 | WOUNDNOTE ---
UMAIR RN note: Patient admitted with osteomyelitis of toe.
See H&P for complete history.
PMH: DM,HTN,UTI,CVA,CAD,CHF,Neuropathy, CABG x 3 vessels 2016, defibrillator 2018.
Wound Location and type/assessment: Patient admitted from podiatry office with: R 2nd medial toe moist head eschar, no swelling or odor. + osteomyelitis per podiatry report. Reviewed Dr. Owens's note, scheduled for R 2nd toe amputation 03/21.
+ audible pulses with Doppler. Mupirocin ordered by Podiatry. Heels are boggy and barely blanchable. Sacrum is stage 1 PI, had dried patch of skin that sloughed off with cleaning. at bedside shown and aware. Patient very thin in appearance,
states his appetite is poor, does take boost supplement daily.
Appetite: Poor, encouraged increased protein in diet.
Pressure redistribution devices in place: On Accumax, can turn self. Brought in air overlay, asked nurse Will to apply when able. Air chair cushion on pillow under calves.
Plan: Mupirocin and dry 2x2 gauze changed. Calazime applied to buttocks. Foam adhesive applied to heels.
Will follow along peripherally and assist as needed.
Note to case management of equipment requested for discharge: TBD
Recommend follow up with Optical Instrument Assembly Supervisor.
[2024-03-20 15:00] VITALS: BP 119/67
--- NOTE | 2024-03-20 16:29 | CM ---
mri manager reviewed patient's chart and casework manager met with patient and patient lives with spouse in a 2 story home, patient is independent with adl's and uses a walker with ambulation. Patient is current with [facility].
Pharmacy; [facility]
PCP: Romelia Johnson
Plan; Home with [facility].
[2024-03-20] MEDS: LOVENOX 40 MG SC (18:22)
[2024-03-20] MEDS: MELATONIN 5 MG PO (20:54)
[2024-03-20 23:00] VITALS: BP 114/66
[2024-03-21] VITALS (12 sets, daily range): BP systolic 94–152; BP diastolic 51–84
[2024-03-21] MEDS: LEXAPRO 5 MG PO (09:08)
[2024-03-21] MEDS: FLOMAX 0.4 MG PO (09:08)
[2024-03-21] MEDS: PROCARDIA XL (EXTENDED RELEASE) 30 MG PO (09:08)
[2024-03-21] MEDS: LIPITOR 10 MG PO (09:08)
[2024-03-21] MEDS: NEURONTIN 300 MG PO ×2 (09:08→20:39)
[2024-03-21] MEDS: PROTONIX 40 MG PO (09:08)
[2024-03-21] MEDS: ASPIR LOW (ENTERIC COATED) 81 MG PO (09:08)
[2024-03-21] MEDS: SENOKOT 8.6 MG PO ×2 (09:08→20:39)
--- NOTE | 2024-03-21 09:08 | W.PN.HOSP.TC ---
Today's Communication/Plan
-
see bold
Assessment / Plan
Assessment / Plan
HPI: 79-year-old male with a past medical history of right second toe osteomyelitis, atrial fibrillation, CAD, CHF, CVA, hypertension, hyperlipidemia, chronic kidney disease, and diabetes was sent by his solution specialist for admission to have an
amputation of his right second toe. Patient was recently treated from [facility] for right second toe osteomyelitis, discharged on 03/04/2024. Currently, he denies pain of his toe. Denies chest pain, shortness of breath, or palpitations.
No fever, no vomiting.
#Nonhealing ulcer on right second toe
Podiatry consulted, planning for amputation on 03/21/2024
#Peripheral artery disease
Continue aspirin, statin
#Chronic hyponatremia
Fluid restrict, trend sodium
#Hypokalemia
Repleted and resolved
#Dementia, unknown type
Appears at baseline
Recommend neuropsychiatric testing outpatient
#History of diabetes
Check hemoglobin A1c
#Benign essential hypertension
Continue nifedipine
#Anxiety/depression
Continue SSRI
DVT prophylaxis�subcu Lovenox
Full code
Total time spent to see the patient on the floor, examine the patient, review data and lab results, discuss treatment plan with patient, nursing staff around 36 minutes.
Updated at bedside 03/21
Physical Exam
General: No Apparent Distress
HEENT: NormoCephalic, Anicteric and Moist mucous membranes
Respiratory: Clear
Cardiac: S1/S2 and Regular Rhythm
GI: Soft, Non Tender, Non Distended and Normal Bowel Sounds
Musculoskeletal: No Clubbing, No Cyanosis and No Edema
Skin: Other (Ulcer noted on right second toe)
Neuro: Pleasantly confused
Psych: Calm
Anticipated Discharge: Within 24 hours
Subjective/Interval History
-
Date of Service: March 21, 2024
No acute events. Denies chest pain, shortness of breath. No fever, no vomiting.
Objective Data
-
Vital Signs:
Vital Signs
Temp Pulse Resp BP Pulse Ox
97.9 F 66 14 131/65 94
03/21/24 07:00 03/21/24 07:00 03/21/24 07:00 03/21/24 07:00 03/21/24 07:00
I&O
03/20/24 03/21/24 03/22/24
06:59 06:59 06:59
Intake Total 1080 / 1080 1200 / 1200
Output Total 300 / 300 775 / 775
Balance 780 / 780 425 / 425
[2024-03-21] MEDS: MIRALAX 17 GRAMS PO (09:09)
[2024-03-21] MEDS: BACTROBAN 2% OINTMENT 1 APPLIC TOPICAL (09:09)
--- NOTE | 2024-03-21 09:57 | PN.CDI ---
CDI
- -
CDI:
Physician Documentation Request
Admit Date: 03/19/24 16:08
Dear Doctor Do,
Patient admitted for toe ulcer.
03/20 Wound care note: 'Sacrum is stage 1 PI, had dried patch of skin that sloughed off with cleaning.'
Physician documentation of the type and location of wounds is required for compliant documentation. Based on the above clinical findings and your assessment, please provide the following in your progress note:
1. Location of the ulcer/wound, including laterality.
2. Type (etiology) of ulcer/wound:
- Diabetic ulcer
- Arterial (ischemic) ulcer
- Traumatic wound
- Venous stasis ulcer
- Pressure (decubitus) ulcer
- Non-healing surgical wound
- Other
- Unable to determine
3. For a non-pressure ulcer, please indicate the depth/severity:
- Limited to the breakdown of skin
- With fat layer exposed
- With necrosis of muscle
- With necrosis of bone
- Other
- Unable to determine
4. If a pressure ulcer, please also include the stage* of the ulcer:
- Stage 1 - Skin intact, non-blanchable redness
- Stage 2 - Partial thickness loss of dermis, includes intact or open blister
- Stage 3 - Full thickness tissue not including bone, tendon or muscle
- Stage 4 - Full thickness tissue loss, including exposed bone, tendon or muscle
- Unstageable - Full thickness loss in which the base of the ulcer is covered by slough (yellow, head, maddox, green or brown) and/or eschar (head, brown or black) in the wound bed.
- Unable to determine
Use of terms such as suspected, likely, concern for, or probable (associated with a specific diagnosis that is being evaluated, monitored, or treated as if it exists) are acceptable and can be coded in the inpatient setting, when documented at the
time of discharge.
Thank you,
Jessica Shah RN, BSN
CDI Specialist
Available via [place] text
Please use your independent medical judgment in providing your response.
*Source: National Pressure Ulcer Advisory Panel (NPUAP)
[2024-03-21 11:55] LABS: Glucose - Point of Care 95 mg/dl (70-99)
--- NOTE | 2024-03-21 12:27 | W.SUR.POST ---
Surgical Immediate Post Op
Note
Pre Op Diagnosis: Right 2nd toe osteomyelitis
Post Op Diagnosis: Same as above
Procedure Performed: Right 2nd toe amputation
Primary Surgeon: Dr. Owens
Secondary Surgeons: None
Anesthesia: General with local block
Estimated Blood Loss: 1to 2 cc
Fluids: None
Drains/Shunts: None
Specimens/Cultures: Aerobic and anaerobic cultures sent
Doppler/Duplex/Angio (Y/N): N
Complications: None
Operative Findings: there was some scant blood flow noted, no deep tissue purulence noted .
Patient stable in PACu with intact vascular status to Rt foot and stable vitala signs
[2024-03-21 12:43] LABS: Glucose - Point of Care 100 mg/dl (70-99)
--- NOTE | 2024-03-21 12:52 | PTCARENOTE ---
Patient NPO this am, for OR this morning. R foot 2nd toe with no drainage, no c/o pain. in to visit. Report given to OR.
--- NOTE | 2024-03-21 14:44 | CM ---
Chart reviewed and patient is for possible OR today, plan is for patient to return to home with spouse and [facility] when stable.
Plan; Home when stable with [facility].
[2024-03-21] MEDS: LOVENOX 40 MG SC (16:58)
[2024-03-21] MEDS: BACTROBAN 2% OINTMENT TOPICAL (20:36)
[2024-03-21] MEDS: MELATONIN 5 MG PO (20:39)
[2024-03-22] VITALS (7 sets, daily range): BP systolic 109–137; BP diastolic 59–79; PULSE 70; O2SAT 93–99; BMI 20.9
[2024-03-22 07:38] LABS: ALT (SGPT) < 10 U/L (0-50); AST (SGOT) 20 U/L (17-59); Albumin 3.6 g/dl (3.5-5.0); Alkaline Phosphatase 125 U/L (38-126); Blood Urea Nitrogen 20 mg/dl (9-20); Calcium 8.8 mg/dl (8.4-10.2); Carbon Dioxide 22 mmol/L (22-30); Chloride 94 mmol/L (98-107); Estimated Creatinine Clearance 27 ml/min; Glucose 141 mg/dl (70-99); Potassium 4.3 mmol/L (3.5-5.1); Sodium 125 mmol/L (135-145); Total Bilirubin 0.6 mg/dl (0.2-1.3); Total Protein 6.4 g/dl (6.3-8.2); eGFR 33.53
--- NOTE | 2024-03-22 08:36 | W.PN.HOSP.TC ---
Today's Communication/Plan
-
See bold
Assessment / Plan
Assessment / Plan
HPI: 79-year-old male with a past medical history of right second toe osteomyelitis, atrial fibrillation, CAD, CHF, CVA, hypertension, hyperlipidemia, chronic kidney disease, and diabetes was sent by his security installer for admission to have an
amputation of his right second toe. Patient was recently treated from [facility] for right second toe osteomyelitis, discharged on 03/04/2024. Currently, he denies pain of his toe. Denies chest pain, shortness of breath, or palpitations.
No fever, no vomiting.
#Nonhealing ulcer on right second toe
#History of right second toe osteomyelitis
Podiatry consulted, s/p right 2nd toe amputation on 03/21/2024
[facility] for dressing changes to Rt foot every other day
Keflex 500 mg bid for 1 wk
Follow-up podiatry in the office on 03/28
PT rec SNF
#Acute on chronic hyponatremia
Check urine sodium, urine osmolality, serum osmolality, TSH, a.m. cortisol
Fluid restrict, consult nephrology
#Acute kidney injury
Start IV fluids, trend creatinine
#Peripheral artery disease
Continue aspirin, statin
#Hypokalemia
Repleted and resolved
#Dementia, unknown type
Appears at baseline
Recommend neuropsychiatric testing outpatient
#History of diabetes
Hemoglobin A1c 5.6
#Benign essential hypertension
Continue nifedipine
#Anxiety/depression
Continue SSRI
#Sacrum is stage 1 PI, POA
Wound care, offloading
DVT prophylaxis�subcu Lovenox
Full code
Updated on phone 03/22
Total time spent to see the patient on the floor, examine the patient, review data and lab results, discuss treatment plan with patient, nursing staff around 50 minutes.
Physical Exam
General: No Apparent Distress
HEENT: NormoCephalic, Anicteric and Moist mucous membranes
Respiratory: Clear
Cardiac: S1/S2 and Regular Rhythm
GI: Soft, Non Tender, Non Distended and Normal Bowel Sounds
Musculoskeletal: No Clubbing, No Cyanosis and No Edema
Skin: Stage I pressure ulcer on sacrum
Right toe amputation site dressed
Neuro: Pleasantly confused
Psych: Calm
Anticipated Discharge: 24 - 48 hours
Subjective/Interval History
-
Date of Service: March 21, 2024
Objective Data
-
Vital Signs:
Vital Signs
Temp Pulse Resp BP Pulse Ox
97.0 F 80 16 106/53 95
03/21/24 16:00 03/21/24 16:00 03/21/24 16:00 03/21/24 16:00 03/21/24 16:00
I&O
03/20/24 03/21/24 03/22/24
06:59 06:59 06:59
Intake Total 1080 / 1080 1200 / 1200 100 / 100
Output Total 300 / 300 775 / 775
Balance 780 / 780 425 / 425 100 / 100
[2024-03-22] MEDS: NEURONTIN 300 MG PO ×2 (08:51→20:23)
[2024-03-22] MEDS: PROTONIX 40 MG PO (08:51)
[2024-03-22] MEDS: LIPITOR 10 MG PO (08:51)
[2024-03-22] MEDS: PROCARDIA XL (EXTENDED RELEASE) 30 MG PO (08:51)
[2024-03-22] MEDS: SENOKOT PO ×3 (08:51→20:23)
[2024-03-22] MEDS: FLOMAX 0.4 MG PO (08:51)
[2024-03-22] MEDS: ASPIR LOW (ENTERIC COATED) 81 MG PO (08:51)
[2024-03-22] MEDS: LEXAPRO 5 MG PO (08:51)
[2024-03-22] MEDS: MIRALAX PO ×2 (08:52→09:02)
[2024-03-22] MEDS: BACTROBAN 2% OINTMENT TOPICAL ×2 (08:52→20:23)
[2024-03-22 09:12] LABS: Hematocrit 26.7 % (39.0-52.0); Hemoglobin 9.5 g/dL (13.0-18.0); Mean Corp Hgb Conc. 35.6 g/dL (33.0-37.0); Mean Corpuscular Hgb 28.8 pg (27.0-31.0); Mean Corpuscular Volume 80.9 fL (80.0-94.0); Mean Platelet Volume 9.2 fL (7.4-10.4); Platelet Count 175 10^3/uL (130-400); Red Cell Dist. Width 13.7 % (11.5-14.5); White Blood Cell Count 7.6 10^3/uL (4.8-10.8)
--- NOTE | 2024-03-22 09:20 | PN.CDI ---
CDI
- -
CDI:
Physician Documentation Request
Admit Date: 03/19/24 16:08
Dear Doctor Do,
Patient admitted for nonhealing ulcer.
03/20 Wound Care Note: 'Sacrum is stage 1 PI, had dried patch of skin that sloughed off with cleaning.'
Physician documentation of the type and location of wounds is required for compliant documentation. Based on the above clinical findings and your assessment, please provide the following in your progress note:
1. Location of the ulcer/wound, including laterality.
2. Type (etiology) of ulcer/wound:
- Diabetic ulcer
- Arterial (ischemic) ulcer
- Traumatic wound
- Venous stasis ulcer
- Pressure (decubitus) ulcer
- Non-healing surgical wound
- Other
- Unable to determine
3. For a non-pressure ulcer, please indicate the depth/severity:
- Limited to the breakdown of skin
- With fat layer exposed
- With necrosis of muscle
- With necrosis of bone
- Other
- Unable to determine
4. If a pressure ulcer, please also include the stage* of the ulcer:
- Stage 1 - Skin intact, non-blanchable redness
- Stage 2 - Partial thickness loss of dermis, includes intact or open blister
- Stage 3 - Full thickness tissue not including bone, tendon or muscle
- Stage 4 - Full thickness tissue loss, including exposed bone, tendon or muscle
- Unstageable - Full thickness loss in which the base of the ulcer is covered by slough (yellow, head, maddox, green or brown) and/or eschar (head, brown or black) in the wound bed.
- Unable to determine
Use of terms such as suspected, likely, concern for, or probable (associated with a specific diagnosis that is being evaluated, monitored, or treated as if it exists) are acceptable and can be coded in the inpatient setting, when documented at the
time of discharge.
Thank you,
Jessica Shah RN, BSN
CDI Specialist
Available via [place] text
Please use your independent medical judgment in providing your response.
*Source: National Pressure Ulcer Advisory Panel (NPUAP)
[2024-03-22 09:56] LABS: Blood Urea Nitrogen 21 mg/dl (9-20); Calcium 8.7 mg/dl (8.4-10.2); Carbon Dioxide 22 mmol/L (22-30); Chloride 94 mmol/L (98-107); Estimated Creatinine Clearance 28 ml/min; Glucose 120 mg/dl (70-99); Potassium 4.1 mmol/L (3.5-5.1); Sodium 125 mmol/L (135-145); eGFR 35.66
--- NOTE | 2024-03-22 11:27 | W.PN.POD ---
Today's Communication
Today's Communication
Patient is stable to d/c home per podiatry
Assessment / Plan
-
S/P Rt 2nd toe amputation due to osteomyelitis POD #1
PAD - no options for revascularization .
Plan : Changed surgical dressings to Rt foot
Patient will need [facility] for dressing changes to Rt foot every other day
\\Daily dressings with adaptic, dry gauze and kerlix to Rt foot
Keep he Rt foot elevated when at rest
HE will f/u in my office next wednesday 03/28
He will need Po Keflex 500 mg bid for 1 wk
Subjective
Chief Complaint
Rt 2nd toe osteomyelitis
Subjective
Patient seen at bedside, doing well, some strike through bleeding noted in surgical dressings, no fever, chills. Denies nay Rt foot pain, no calf pain noted.
Objective
Temp Pulse Resp BP Pulse Ox
97.4 F 74 19 109/60 97
03/22/24 11:02 03/22/24 11:02 03/22/24 11:02 03/22/24 11:02 03/22/24 11:02
03/22/24 06:33
03/22/24 09:06
Vital Signs and Lab results were reviewed.
Rt foot 2nd toe amputation site is clean, dry, intact sutures, no active oozing noted, well coapted skin incision No necrosis, no erythem,a no SOI
[2024-03-22] MEDS: NSS 1000 IV (12:55)
--- NOTE | 2024-03-22 13:20 | CM ---
Met with patient at bedside and spoke with patient on the phone to discuss discharge planning and SNF recommendation
List of SNFs reviewed with ; preferences identified; referrals sent to [facility], and [facility]
Plan: discharge to SNF pending available bed and AUTH approval
[2024-03-22 15:36] LABS: Osmolality Serum 268 mOsm/kg (275-300)
--- NOTE | 2024-03-22 16:30 | W.CON.NEPH ---
Consultation
-
Date/Time Consultation Requested: 03/22/24 11:41AM
Date/Time Consultation Performed: 03/22/24 4:30PM
Requesting Provider: Rommel Whitaker
Performing Provider: Kaylyn Cade
Reason for Consultation: hyponatremia DARRICK
Medical History
-
Chief Complaint: hyponatremia/DARRICK
History of Present Illness:
This is a 79-year-old gentleman with hypertension on a monotherapy regimen modestly controlled, atrial fibrillation paroxysmal with history of stroke on antiplatelet therapy who has suspected osteomyelitis of his right foot second toe. He was sent
to the ER by podiatry for admission to have amputation of his R second toe. Of note, the pateint had a recent admission for right second toe OM, discharged 03/04. He underwent R toe amputation on 03/21/2024. Since his surgery, his Cr has risen from
1.2 --> 2.0, slightly improved to 1.9. His Na also dropped from 132 --> 125. We are asked to assist in the mangaement of his hyponatremia and DARRICK.
Past Medical History
Peripheral arterial disease
Carotid arterial disease
Coronary disease
Atrial fibrillation
Hemorrhagic stroke
Hypertension
Dementia
Depression
CKD 3A
Hyponatremia
Hernia repair
CABG
Left carotid endarterectomy
Pacemaker ICD
Social History
Tobacco: Non-Smoker
Alcohol: Occasional
Family History
Family History: Not Pertinent
Allergies / Home Medications
Allergy/AdvReac Type Severity Reaction Status Date / Time
No Known Allergies Allergy Verified 03/19/24 12:28
�Medication �Instructions �Recorded �Confirmed �Type
aspirin 81 mg tablet,delayed 81 mg PO DAILY #30 tabs 10/14/20 03/19/24 Rx
release
atorvastatin 10 mg tablet 10 mg PO DAILY #90 tabs 10/14/20 03/19/24 Rx
gabapentin 300 mg capsule 300 mg PO BID #180 caps 10/14/20 03/19/24 Rx
nifedipine 30 mg tablet,extended 30 mg PO DAILY #30 tabs 10/14/20 03/19/24 Rx
release
tamsulosin 0.4 mg capsule 0.4 mg PO DAILY #90 caps 10/14/20 03/19/24 Rx
escitalopram oxalate 5 mg tablet 5 mg PO DAILY depression/anxiety 03/01/24 03/19/24 History
melatonin 5 mg tablet 5 mg PO HS Sleep 03/01/24 03/19/24 History
pantoprazole 40 mg tablet,delayed 40 mg PO DAILY Gastrointestinal 03/01/24 03/19/24 History
release Issue
mupirocin 2 % topical ointment 1 applic topical BID TOE WOUND 03/19/24 03/19/24 History
Review of Systems
-
History Source: Patient
All other systems: Negative unless noted
Physical Exam
Vital Signs
Vital Signs
Temp Pulse Resp BP Pulse Ox
97.2 F 67 20 121/59 96
03/22/24 14:45 03/22/24 14:45 03/22/24 14:45 03/22/24 14:45 03/22/24 14:45
Lab Results
WBC 7.6 10^3/uL (4.8-10.8) 03/22/24 06:33
RBC 3.30 10^6/uL (4.70-6.10) L 03/22/24 06:33
Hgb 9.5 g/dL (13.0-18.0) L D 03/22/24 06:33
Hct 26.7 % (39.0-52.0) L 03/22/24 06:33
Plt Count 175 10^3/uL (130-400) D 03/22/24 06:33
Sodium 125 mmol/L (135-145) L 03/22/24 09:06
Potassium 4.1 mmol/L (3.5-5.1) 03/22/24 09:06
Chloride 94 mmol/L (98-107) L 03/22/24 09:06
Carbon Dioxide 22 mmol/L (22-30) 03/22/24 09:06
BUN 21 mg/dl (9-20) H 03/22/24 09:06
Creatinine 1.9 mg/dL (0.7-1.3) H 03/22/24 09:06
eGFR 35.66 03/22/24 09:06
Glucose 120 mg/dl (70-99) H 03/22/24 09:06
Calcium 8.7 mg/dl (8.4-10.2) 03/22/24 09:06
Albumin 3.6 g/dl (3.5-5.0) 03/22/24 06:33
Physical Exam
General: AOx3, No Distress and Nontoxic
HEENT: PERRL, EOMI, Anicteric, Conjunctivae Clear, Ear/Nose Intact, Hearing Normal, Oropharynx Clear/Moist, Dentition Intact, Facial Symmetry, Neck Supple, Trachea Midline, No JVD and No Thyromegaly
Respiratory: Clear, Normal Excursion and Nonlabored Respirations
Cardiac: S1/S2, Regular Rate/Rhythm and No Edema
Breast: N/A
Abdomen: Soft, Nontender, Nondistended, Normal Bowel Sounds and No Hepatosplenomegaly
Rectal: Deferred by Provider
Genito-urinary: No Costovertebral Tender
Musculoskeletal: No Clubbing, No Cyanosis and No Edema
Skin: Other (R toe amputation site dressed and clean )
Neuro: Nonfocal/Grossly Intact
Hematologic/Lymphatic: No Cervical Lymphadenopathy
Psych: Other (pleasantly confused)
Data Reviewed
-
Radiology: Image Personally Visualized and interpreted (CXR 03/01: PPM in place, R plerual effusion)
Labs: Labs Reviewed by me, Discussed with Physician and Discussed with Patient
Old Records: Reviewed
Assessment/Plan
-
Assessment
s/p R toe amputation
DARRICK
CKD 3A, 1.2
Hypertension
Hyponatremia acute on chronic
Atrial fibrillation
Plan
-ordered UA, Uosm, urine sodium
-likely some component of ATN with the procedure
-will give some 3% saline based on prior urine studies
-follow BMP. q6h Na
[2024-03-22] MEDS: KEFLEX 500 MG PO ×2 (17:06→23:35)
[2024-03-22] MEDS: SODIUM CHLORIDE 3% 250 IV (17:06)
[2024-03-22] MEDS: LOVENOX 30 MG SC (17:17)
[2024-03-22] MEDS: MELATONIN 5 MG PO (20:24)
[2024-03-22 20:43] LABS: Urine Albumin 2+ (Neg - Trace); Urine Bilirubin Negative (Negative); Urine Character Slightly Cloudy (Clear); Urine Color Yellow; Urine Glucose Negative (Negative); Urine Ketone Negative (Negative); Urine Leukocyte Negative (Negative); Urine Nitrite Negative (Negative); Urine Occult Blood Negative (Negative); Urine Specific Gravity 1.015 (<1.030); Urine Urobilinogen Negative (Neg - 1+)
[2024-03-22 20:47] LABS: Osmolality Urine 316 mOsm/kg (300-900)
[2024-03-22 20:53] LABS: Urine Sodium 40 mmol/L (30-90)
[2024-03-22 21:01] LABS: Urine Bacteria Moderate (Negative); Urine White Cell 16-20 /HPF (0-5)
--- NOTE | 2024-03-23 04:12 | PTCARENOTE ---
This RN assumed of this patient at 0330 am.
[2024-03-23 06:00] VITALS: BMI 21.3
[2024-03-23] MEDS: NSS IV (06:50)
[2024-03-23 07:00] VITALS: BP 144/73
[2024-03-23 07:07] LABS: Hemoglobin 10.6 g/dL (13.0-18.0); Mean Corp Hgb Conc. 36.6 g/dL (33.0-37.0); Mean Corpuscular Hgb 29.8 pg (27.0-31.0); Mean Corpuscular Volume 81.5 fL (80.0-94.0); Mean Platelet Volume 9.5 fL (7.4-10.4); Platelet Count 175 10^3/uL (130-400); Red Blood Cell Count 3.56 10^6/uL (4.70-6.10); Red Cell Dist. Width 13.5 % (11.5-14.5); White Blood Cell Count 6.5 10^3/uL (4.8-10.8)
[2024-03-23 07:37] LABS: Blood Urea Nitrogen 20 mg/dl (9-20); Calcium 8.8 mg/dl (8.4-10.2); Carbon Dioxide 21 mmol/L (22-30); Chloride 100 mmol/L (98-107); Estimated Creatinine Clearance 34 ml/min; Glucose 90 mg/dl (70-99); Magnesium 1.7 mg/dl (1.6-2.3); Phosphorus 3.4 mg/dl (2.5-4.5); Sodium 129 mmol/L (135-145); eGFR 43.83
[2024-03-23 08:05] LABS: Cortisol, Random 6.5 ug/dl; TSH Reflex To Free T4 4.06 uIU/ml (0.47-4.68)
--- NOTE | 2024-03-23 08:43 | W.PN.HOSP.TC ---
Today's Communication/Plan
-
Discharge to short-term rehab tomorrow
Assessment / Plan
Assessment / Plan
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
amputation of his right second toe. Patient was recently treated from [facility] for right second toe osteomyelitis, discharged on 03/04/2024. Currently, he denies pain of his toe. Denies chest pain, shortness of breath, or palpitations.
No fever, no vomiting.
#Nonhealing ulcer on right second toe
#History of right second toe osteomyelitis
Podiatry consulted, s/p right 2nd toe amputation on 03/21/2024
VN for dressing changes to Rt foot every other day
Keflex 500 mg tid for 1 wk
Follow-up podiatry in the office on 03/28
PT rec SNF
#Acute on chronic hyponatremia
Appreciate nephrology input, sodium improved status post hypertonic saline
Continue fluid restriction, trend sodium
#Acute kidney injury
Improving on IV fluids, trend creatinine
#Peripheral artery disease
Continue aspirin, statin
#Hypokalemia
Repleted and resolved
#Dementia, unknown type
Appears at baseline
Recommend neuropsychiatric testing outpatient
#History of diabetes
Hemoglobin A1c 5.6
#Benign essential hypertension
Continue nifedipine
#Anxiety/depression
Continue SSRI
#Sacrum is stage 1 PI, POA
Wound care, offloading
DVT prophylaxis�subcu Lovenox
Full code
Updated on phone 03/22
Total time spent to see the patient on the floor, examine the patient, review data and lab results, discuss treatment plan with patient, nursing staff around 40 minutes.
Physical Exam
General: No Apparent Distress
HEENT: NormoCephalic, Anicteric and Moist mucous membranes
Respiratory: Clear
Cardiac: S1/S2 and Regular Rhythm
GI: Soft, Non Tender, Non Distended and Normal Bowel Sounds
Musculoskeletal: No Clubbing, No Cyanosis and No Edema
Skin: Stage I pressure ulcer on sacrum
Right toe amputation site dressed
Neuro: Pleasantly confused
Psych: Calm
Anticipated Discharge: Within 24 hours
Subjective/Interval History
-
Date of Service: March 23, 2024
Patient denies left foot pain. No fever, no vomiting.
Objective Data
-
Labs:
Laboratory Results
03/23/24
06:43
WBC 6.5
Hgb 10.6 L
Hct 29.0 L
Plt Count 175
Sodium 129 L
Potassium Pending
Chloride 100
Carbon Dioxide 21 L
BUN 20
Creatinine 1.6 H
Glucose 90
Calcium 8.8
Vital Signs:
Vital Signs
Temp Pulse Resp BP Pulse Ox
97.2 F 66 16 137/62 97
03/22/24 23:00 03/22/24 23:00 03/22/24 23:00 03/22/24 23:00 03/23/24 05:49
I&O
03/22/24 03/23/24 03/24/24
06:59 06:59 06:59
Intake Total 340 / 340 780 / 780
Output Total 450 / 450
Balance 340 / 340 330 / 330
[2024-03-23] MEDS: PROTONIX 40 MG PO (09:08)
[2024-03-23] MEDS: KEFLEX 500 MG PO ×3 (09:08→23:12)
[2024-03-23] MEDS: ASPIR LOW (ENTERIC COATED) 81 MG PO (09:08)
[2024-03-23] MEDS: FLOMAX 0.4 MG PO (09:08)
[2024-03-23] MEDS: LIPITOR 10 MG PO (09:08)
[2024-03-23] MEDS: NEURONTIN 300 MG PO ×2 (09:08→19:51)
[2024-03-23] MEDS: LEXAPRO 5 MG PO (09:08)
[2024-03-23] MEDS: SENOKOT PO ×2 (09:09→19:52)
[2024-03-23] MEDS: MIRALAX PO (09:09)
[2024-03-23] MEDS: PROCARDIA XL (EXTENDED RELEASE) 30 MG PO (09:09)
[2024-03-23] MEDS: BACTROBAN 2% OINTMENT TOPICAL ×3 (09:35→19:50)
--- NOTE | 2024-03-23 13:56 | W.PN.NEPH.PH ---
Today's Communication / Plan
-
Maintain fluid restriction
Follow-up BMP
Assessment/Plan
-
Assessment
s/p R toe amputation
DARRICK
CKD 3A, 1.2
Hypertension
Hyponatremia acute on chronic
Atrial fibrillation
Plan
-ordered UA, Uosm (316), urine sodium 40
-likely some component of ATN with the procedure
-s/p 3% saline provided and sodium up to 129
-Maintain 48 ounce fluid restriction
-Maintain fluid restrict
-Kidney function improving to 1.6
-
-
Date of Service: March 23, 2024
CC / HPI / ROS
-
Chief Complaint:
Hyponatremia
Acute kidney
History of Present Illness:
Hemodynamically stable
Creatinine down to 1.6
Serum sodium up to 129 following 3% saline infusion
Review of Systems:
Nonoliguric
No fevers
Labs
-
Labs:
WBC 6.5 10^3/uL (4.8-10.8) 03/23/24 06:43
RBC 3.56 10^6/uL (4.70-6.10) L 03/23/24 06:43
Hgb 10.6 g/dL (13.0-18.0) L 03/23/24 06:43
Hct 29.0 % (39.0-52.0) L 03/23/24 06:43
Plt Count 175 10^3/uL (130-400) 03/23/24 06:43
Sodium 129 mmol/L (135-145) L 03/23/24 06:43
Chloride 100 mmol/L (98-107) 03/23/24 06:43
Carbon Dioxide 21 mmol/L (22-30) L 03/23/24 06:43
BUN 20 mg/dl (9-20) 03/23/24 06:43
Creatinine 1.6 mg/dL (0.7-1.3) H 03/23/24 06:43
eGFR 43.83 03/23/24 06:43
Glucose 90 mg/dl (70-99) 03/23/24 06:43
Calcium 8.8 mg/dl (8.4-10.2) 03/23/24 06:43
Phosphorus 3.4 mg/dl (2.5-4.5) 03/23/24 06:43
Albumin 3.6 g/dl (3.5-5.0) 03/22/24 06:33
Physical Exam
-
Vital Signs:
Vital Signs
Temp Pulse Resp BP Pulse Ox
98.1 F 66 18 144/73 92
03/23/24 07:00 03/23/24 09:09 03/23/24 07:00 03/23/24 09:09 03/23/24 07:00
Cardiovascular:: Regular rate and rhythm
Respiratory:: Bilateral: Coarse
Lung Excursion:: Normal
Abdomen:: Nontender and Soft
Bowel Sounds:: Normal
Extremity Edema:: None: Bilateral:
[2024-03-23 14:18] LABS: Potassium 4.3 mmol/L (3.5-5.1)
[2024-03-23] MEDS: NSS 1000 IV (14:27)
[2024-03-23 15:00] VITALS: BP 119/58
--- NOTE | 2024-03-23 15:27 | CM ---
Addendum entered by Daniela Best 03/23/24 16:51:
Per admissions at [facility] they may have a bed open on the weekend for patient, social work case manager will need to call [facility] number, to check on a available bed.
Auth submitted to [facility] [phone], fax [phone], Pending Case # [id number].
Original Note:
Referrals sent to skilled facilities yesterday, per admissions at [facility] they are out of network with patient's insurance, per [facility] they are out of network with insurance. Case management reached out to Nakul in admissions at [facility], waiting on a determination.
Plan; Skilled placement at [facility]
Needs Auth from [facility]
[2024-03-23] MEDS: LOVENOX 30 MG SC (17:32)
[2024-03-23] MEDS: MELATONIN 5 MG PO (23:11)
[2024-03-23 23:25] VITALS: BP 127/65
[2024-03-23] MEDS: ROXICODONE 5 MG PO (23:59)
[2024-03-24 06:00] VITALS: BMI 21.5
[2024-03-24 07:07] LABS: Hematocrit 26.9 % (39.0-52.0); Hemoglobin 9.8 g/dL (13.0-18.0); Mean Corp Hgb Conc. 36.4 g/dL (33.0-37.0); Mean Corpuscular Hgb 29.6 pg (27.0-31.0); Mean Corpuscular Volume 81.3 fL (80.0-94.0); Mean Platelet Volume 9.7 fL (7.4-10.4); Platelet Count 175 10^3/uL (130-400); Red Blood Cell Count 3.31 10^6/uL (4.70-6.10); Red Cell Dist. Width 13.7 % (11.5-14.5); White Blood Cell Count 6.3 10^3/uL (4.8-10.8)
[2024-03-24 07:27] LABS: Blood Urea Nitrogen 19 mg/dl (9-20); Calcium 8.8 mg/dl (8.4-10.2); Carbon Dioxide 22 mmol/L (22-30); Chloride 102 mmol/L (98-107); Estimated Creatinine Clearance 32 ml/min; Glucose 88 mg/dl (70-99); Potassium 4.5 mmol/L (3.5-5.1); Sodium 131 mmol/L (135-145); eGFR 40.75
[2024-03-24 07:35] VITALS: BP 138/69
--- NOTE | 2024-03-24 08:39 | W.PN.HOSP.TC ---
Today's Communication/Plan
-
Normal saline IV fluids
Discharge home with home VN tomorrow
Assessment / Plan
Assessment / Plan
HPI: 79-year-old male with a past medical history of right second toe osteomyelitis, atrial fibrillation, CAD, CHF, CVA, hypertension, hyperlipidemia, chronic kidney disease, and diabetes was sent by his contract coordinator for admission to have an
amputation of his right second toe. Patient was recently treated from [facility] for right second toe osteomyelitis, discharged on 03/04/2024. Currently, he denies pain of his toe. Denies chest pain, shortness of breath, or palpitations.
No fever, no vomiting.
#Nonhealing ulcer on right second toe
#History of right second toe osteomyelitis
Podiatry consulted, s/p right 2nd toe amputation on 03/21/2024
VN for dressing changes to Rt foot every other day
Keflex 500 mg tid for 1 wk
Follow-up podiatry in the office on 03/28
PT rec SNF, patient/ declines, wants to go home with home care
#Acute on chronic hyponatremia
Appreciate nephrology input, sodium improved status post hypertonic saline
Continue fluid restriction, trend sodium
#Acute kidney injury
Creatinine 1.7 today
Resume IV fluids
#Peripheral artery disease
Continue aspirin, statin
#Hypokalemia
Repleted and resolved
#Dementia, unknown type
Appears at baseline
Recommend neuropsychiatric testing outpatient
#History of diabetes
Hemoglobin A1c 5.6
#Benign essential hypertension
Continue nifedipine
#Anxiety/depression
Continue SSRI
#Sacrum is stage 1 PI, POA
Wound care, offloading
DVT prophylaxis�subcu Lovenox
Full code
Updated on phone 03/24
Total time spent to see the patient on the floor, examine the patient, review data and lab results, discuss treatment plan with patient, nursing staff around 39 minutes.
Physical Exam
General: No Apparent Distress
HEENT: NormoCephalic, Anicteric and Moist mucous membranes
Respiratory: Clear
Cardiac: S1/S2 and Regular Rhythm
GI: Soft, Non Tender, Non Distended and Normal Bowel Sounds
Musculoskeletal: No Clubbing, No Cyanosis and No Edema
Skin: Stage I pressure ulcer on sacrum
Right toe amputation site dressed
Neuro: Pleasantly confused
Psych: Calm
Anticipated Discharge: Within 24 hours
Subjective/Interval History
-
Date of Service: March 24, 2024
Patient denies foot pain, denies chest pain, denies shortness of breath. No fever, no vomiting.
Objective Data
-
Labs:
Laboratory Results
03/24/24
06:26
WBC 6.3
Hgb 9.8 L
Hct 26.9 L
Plt Count 175
Sodium 131 L
Potassium 4.5
Chloride 102
Carbon Dioxide 22
BUN 19
Creatinine 1.7 H
Glucose 88
Calcium 8.8
Vital Signs:
Vital Signs
Temp Pulse Resp BP Pulse Ox
97.9 F 74 16 138/69 92
03/24/24 07:35 03/24/24 07:35 03/24/24 07:35 03/24/24 07:35 03/24/24 07:35
I&O
03/23/24 03/24/24 03/25/24
06:59 06:59 06:59
Intake Total 780 / 780 1380 / 1380
Output Total 450 / 450 1640 / 1640
Balance 330 / 330 -260 / -260
[2024-03-24] MEDS: MIRALAX PO (09:17)
[2024-03-24] MEDS: LEXAPRO 5 MG PO (09:18)
[2024-03-24] MEDS: PROCARDIA XL (EXTENDED RELEASE) 30 MG PO (09:18)
[2024-03-24] MEDS: LIPITOR 10 MG PO (09:19)
[2024-03-24] MEDS: PROTONIX 40 MG PO (09:19)
[2024-03-24] MEDS: FLOMAX 0.4 MG PO (09:19)
[2024-03-24] MEDS: KEFLEX 500 MG PO ×3 (09:19→23:05)
[2024-03-24] MEDS: NEURONTIN 300 MG PO ×2 (09:19→20:45)
[2024-03-24] MEDS: ASPIR LOW (ENTERIC COATED) 81 MG PO (09:19)
[2024-03-24] MEDS: NSS 1000 IV (09:20)
[2024-03-24] MEDS: SENOKOT 8.6 MG PO ×2 (09:20→20:45)
--- NOTE | 2024-03-24 14:18 | W.PN.NEPH.PH ---
Today's Communication / Plan
-
Follow BMP
Assessment/Plan
-
Assessment
s/p R toe amputation
DARRICK
CKD 3A, 1.2
Hypertension
Hyponatremia acute on chronic
Atrial fibrillation
Plan
-ordered UA, Uosm (316), urine sodium 40
-likely some component of ATN with the procedure
-Creatinine of 1.7
-s/p 3% saline provided and sodium up to 129,, now up to 130
-Maintain 48 ounce fluid restriction
-Maintain fluid restrict
-Citalopram may be precipitating SIADH
-
-
Date of Service: March 24, 2024
CC / HPI / ROS
-
Chief Complaint:
Hyponatremia
Acute kidney
History of Present Illness:
Hemodynamically stable
Creatinine down to 1.7
Serum sodium up to 131following 3% saline infusion 2 days ago
Review of Systems:
Nonoliguric
No fevers
Weights up
Labs
-
Labs:
WBC 6.3 10^3/uL (4.8-10.8) 03/24/24 06:26
RBC 3.31 10^6/uL (4.70-6.10) L 03/24/24 06:26
Hgb 9.8 g/dL (13.0-18.0) L 03/24/24 06:26
Hct 26.9 % (39.0-52.0) L 03/24/24 06:26
Plt Count 175 10^3/uL (130-400) 03/24/24 06:26
Sodium 131 mmol/L (135-145) L 03/24/24 06:26
Potassium 4.5 mmol/L (3.5-5.1) 03/24/24 06:26
Chloride 102 mmol/L (98-107) 03/24/24 06:26
Carbon Dioxide 22 mmol/L (22-30) 03/24/24 06:26
BUN 19 mg/dl (9-20) 03/24/24 06:26
Creatinine 1.7 mg/dL (0.7-1.3) H 03/24/24 06:26
eGFR 40.75 03/24/24 06:26
Glucose 88 mg/dl (70-99) 03/24/24 06:26
Calcium 8.8 mg/dl (8.4-10.2) 03/24/24 06:26
Phosphorus 3.4 mg/dl (2.5-4.5) 03/23/24 06:43
Albumin 3.6 g/dl (3.5-5.0) 03/22/24 06:33
Physical Exam
-
Vital Signs:
Vital Signs
Temp Pulse Resp BP Pulse Ox
97.9 F 74 16 138/69 92
03/24/24 07:35 03/24/24 09:18 03/24/24 07:35 03/24/24 09:18 03/24/24 07:35
Cardiovascular:: Regular rate and rhythm
Respiratory:: Bilateral: Coarse
Lung Excursion:: Normal
Abdomen:: Nontender and Soft
Bowel Sounds:: Normal
Extremity Edema:: None: Bilateral:
--- NOTE | 2024-03-24 14:27 | W.PN.POD ---
Today's Communication
Today's Communication
Patient is stable from podiatry to D/C
Assessment / Plan
-
S/P Rt 2nd toe amputation due to osteomyelitis POD #3
PAD - no options for revascularization .
Plan : Changed surgical dressings to Rt foot
Patient will need VN for dressing changes to Rt foot every other day
\\Daily dressings with adaptic, dry gauze and kerlix to Rt foot
Keep he Rt foot elevated when at rest .
Can ambulate with surgical and walker , wt bear to Rt heel
HE will f/u in my office next wednesday 03/28
He will need Po Keflex 500 mg bid for 1 wk
Subjective
Chief Complaint
Rt 2nd toe osteomyelitis
Subjective
Patient seen at bedside, doing well, minimal strike through bleeding noted in surgical dressings, no fever, chills. Denies nay Rt foot pain, no calf pain noted.
Objective
Temp Pulse Resp BP Pulse Ox
97.9 F 74 16 138/69 92
03/24/24 07:35 03/24/24 09:18 03/24/24 07:35 03/24/24 09:18 03/24/24 07:35
03/24/24 06:26
03/24/24 06:26
Vital Signs and Lab results were reviewed.
Rt foot 2nd toe amputation site is clean, dry, intact sutures, no active oozing noted, well coapted skin incision No necrosis, no erythema no SOI
[2024-03-24 15:51] VITALS: BP 116/54
--- NOTE | 2024-03-24 17:00 | PTCARENOTE ---
Dressing changed per MD orders.
[2024-03-24] MEDS: LOVENOX 30 MG SC (17:27)
[2024-03-24] MEDS: BACTROBAN 2% OINTMENT 1 APPLIC TOPICAL (17:27)
[2024-03-24] MEDS: BACTROBAN 2% OINTMENT TOPICAL (20:45)
[2024-03-24 23:01] VITALS: BP 140/64
[2024-03-24] MEDS: MELATONIN 5 MG PO (23:05)
[2024-03-25] MEDS: ROXICODONE 5 MG PO (00:11)
[2024-03-25 05:31] VITALS: BMI 21.6
[2024-03-25] MEDS: NSS 1000 IV (05:52)
[2024-03-25 07:43] VITALS: BP 150/65
[2024-03-25 08:34] LABS: Hematocrit 26.9 % (39.0-52.0); Hemoglobin 9.1 g/dL (13.0-18.0); Mean Corp Hgb Conc. 33.8 g/dL (33.0-37.0); Mean Corpuscular Hgb 28.3 pg (27.0-31.0); Mean Corpuscular Volume 83.5 fL (80.0-94.0); Mean Platelet Volume 9.7 fL (7.4-10.4); Platelet Count 182 10^3/uL (130-400); Red Blood Cell Count 3.22 10^6/uL (4.70-6.10); Red Cell Dist. Width 14.2 % (11.5-14.5); White Blood Cell Count 6.9 10^3/uL (4.8-10.8)
--- NOTE | 2024-03-25 08:43 | W.PN.HOSP.TC ---
Today's Communication/Plan
-
Discharge to short-term rehab when bed available
Assessment / Plan
Assessment / Plan
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
amputation of his right second toe. Patient was recently treated from [facility] for right second toe osteomyelitis, discharged on 03/04/2024. Currently, he denies pain of his toe. Denies chest pain, shortness of breath, or palpitations.
No fever, no vomiting.
#Nonhealing ulcer on right second toe
#History of right second toe osteomyelitis
Podiatry consulted, s/p right 2nd toe amputation on 03/21/2024
Continue Keflex 500 mg twice a day through 03/28.
Keep right foot elevated at rest, weight-bear to right heel.
Follow-up with podiatry in the office on Tuesday, 03/28.
Medically stable for discharge to short-term rehab when bed available
#Acute on chronic hyponatremia
Appreciate nephrology input, sodium improved status post hypertonic saline
Continue fluid restriction, trend sodium
#Acute kidney injury
Creatinine 1.4 today, down from 2.0 on IV fluids
Stop IV fluids after current bag
#Acute blood loss anemia from surgery
Hemoglobin 9.1, was 11.2 upon admission
Mild, monitor hemoglobin
#Peripheral artery disease
Continue aspirin, statin
#Hypokalemia
Repleted and resolved
#Dementia, unknown type
Appears at baseline
Recommend neuropsychiatric testing outpatient
#History of diabetes
Hemoglobin A1c 5.6
#Benign essential hypertension
Continue nifedipine
#Anxiety/depression
Continue SSRI
#Sacrum is stage 1 PI, POA
Wound care, offloading
DVT prophylaxis�subcu Lovenox
Full code
Updated on phone 03/24
Total time spent to see the patient on the floor, examine the patient, review data and lab results, discuss treatment plan with patient, nursing staff around 38 minutes.
Physical Exam
General: No Apparent Distress
HEENT: NormoCephalic, Anicteric and Moist mucous membranes
Respiratory: Clear
Cardiac: S1/S2 and Regular Rhythm
GI: Soft, Non Tender, Non Distended and Normal Bowel Sounds
Musculoskeletal: No Clubbing, No Cyanosis and No Edema
Skin: Stage I pressure ulcer on sacrum
Right toe amputation site dressed
Neuro: Pleasantly confused
Psych: Calm
Anticipated Discharge: Within 24 hours
Subjective/Interval History
-
Date of Service: March 24, 2024
Patient denies foot pain, denies chest pain, denies shortness of breath. No fever, no vomiting.
Objective Data
-
Labs:
Laboratory Results
03/24/24
06:26
WBC 6.3
Hgb 9.8 L
Hct 26.9 L
Plt Count 175
Sodium 131 L
Potassium 4.5
Chloride 102
Carbon Dioxide 22
BUN 19
Creatinine 1.7 H
Glucose 88
Calcium 8.8
Vital Signs:
Vital Signs
Temp Pulse Resp BP Pulse Ox
97.9 F 74 16 138/69 92
03/24/24 07:35 03/24/24 09:18 03/24/24 07:35 03/24/24 09:18 03/24/24 07:35
I&O
03/23/24 03/24/24 03/25/24
06:59 06:59 06:59
Intake Total 780 / 780 1380 / 1380
Output Total 450 / 450 1640 / 1640
Balance 330 / 330 -260 / -260
[2024-03-25] MEDS: PROTONIX 40 MG PO (08:57)
[2024-03-25] MEDS: ASPIR LOW (ENTERIC COATED) 81 MG PO (08:58)
[2024-03-25] MEDS: KEFLEX 500 MG PO ×3 (08:58→21:30)
[2024-03-25] MEDS: PROCARDIA XL (EXTENDED RELEASE) 30 MG PO (08:58)
[2024-03-25] MEDS: SENOKOT 8.6 MG PO ×2 (08:59→21:29)
[2024-03-25] MEDS: FLOMAX 0.4 MG PO (08:59)
[2024-03-25] MEDS: NEURONTIN 300 MG PO ×2 (08:59→21:30)
[2024-03-25] MEDS: LEXAPRO 5 MG PO (08:59)
[2024-03-25] MEDS: MIRALAX PO (09:00)
[2024-03-25] MEDS: LIPITOR 10 MG PO (09:00)
[2024-03-25 09:22] LABS: Blood Urea Nitrogen 17 mg/dl (9-20); Calcium 8.7 mg/dl (8.4-10.2); Carbon Dioxide 20 mmol/L (22-30); Chloride 102 mmol/L (98-107); Estimated Creatinine Clearance 40 ml/min; Glucose 82 mg/dl (70-99); Sodium 130 mmol/L (135-145); eGFR 51.45
--- NOTE | 2024-03-25 12:47 | W.PN.NEPH.PH ---
Today's Communication / Plan
-
Observe on fluid restriction
No need for normal saline from nephrology standpoint
Assessment/Plan
-
Assessment
s/p R toe amputation
DARRICK
CKD 3A, 1.2
Hypertension
Hyponatremia acute on chronic
Atrial fibrillation
Plan
-, Uosm (316), urine sodium 40
-likely some component of ATN with the procedure
-Creatinine improved to 1.4 and remains grossly nonoliguric
-s/p 3% saline provided and sodium up to 129,, now up to 130
-Maintain 48 ounce fluid restriction
-Maintain fluid restrict
-Citalopram may be precipitating SIADH
-
-
Date of Service: March 25, 2024
CC / HPI / ROS
-
Chief Complaint:
Hyponatremia
Acute kidney
History of Present Illness:
Hemodynamically stable
Creatinine down to 1.4
Serum sodium up to 130 following 3% saline infusion 3 days ago
Review of Systems:
Nonoliguric
No fevers
Weights stable
Labs
-
Labs:
WBC 6.9 10^3/uL (4.8-10.8) 03/25/24 07:08
RBC 3.22 10^6/uL (4.70-6.10) L 03/25/24 07:08
Hgb 9.1 g/dL (13.0-18.0) L 03/25/24 07:08
Hct 26.9 % (39.0-52.0) L 03/25/24 07:08
Plt Count 182 10^3/uL (130-400) 03/25/24 07:08
Sodium 130 mmol/L (135-145) L 03/25/24 07:08
Potassium 4.0 mmol/L (3.5-5.1) 03/25/24 07:08
Chloride 102 mmol/L (98-107) 03/25/24 07:08
Carbon Dioxide 20 mmol/L (22-30) L 03/25/24 07:08
BUN 17 mg/dl (9-20) 03/25/24 07:08
Creatinine 1.4 mg/dL (0.7-1.3) H 03/25/24 07:08
eGFR 51.45 03/25/24 07:08
Glucose 82 mg/dl (70-99) 03/25/24 07:08
Calcium 8.7 mg/dl (8.4-10.2) 03/25/24 07:08
Phosphorus 3.4 mg/dl (2.5-4.5) 03/23/24 06:43
Albumin 3.6 g/dl (3.5-5.0) 03/22/24 06:33
Physical Exam
-
Vital Signs:
Vital Signs
Temp Pulse Resp BP Pulse Ox
98.2 F 72 16 150/65 92
03/25/24 07:43 03/25/24 07:43 03/25/24 07:43 03/25/24 08:58 03/25/24 07:43
Cardiovascular:: Regular rate and rhythm
Respiratory:: Bilateral: Coarse
Lung Excursion:: Normal
Abdomen:: Nontender and Soft
Bowel Sounds:: Normal
Extremity Edema:: None: Bilateral:
[2024-03-25] MEDS: NSS IV (13:01)
[2024-03-25] MEDS: BACTROBAN 2% OINTMENT 1 APPLIC TOPICAL (15:22)
[2024-03-25 15:34] VITALS: BP 123/53
--- NOTE | 2024-03-25 16:24 | CM ---
Patient with Dx Nonhealing ulcer on right second toe s/p right 2nd toe amputation, hyponatremia, DARRICK, anemia. Room air.
Met with patient and spoke with [place]; patient wanting to go home however spoke with son and they agreed that the patient would not be able to manage the stairs up to bedroom/bath at home and therefore they would like the patient to go to
SNF for rehab. came in to talk to patient about rehab and he agreed.
As per prior CM notes, await SNF auth from [facility].
Plan d/c to [facility] SNF once insurance approves.
[2024-03-25] MEDS: LOVENOX 30 MG SC (18:26)
--- NOTE | 2024-03-25 18:42 | PTCARENOTE ---
Dressing changed per MD ORDER.
[2024-03-25] MEDS: BACTROBAN 2% OINTMENT TOPICAL (21:25)
[2024-03-25] MEDS: MELATONIN 5 MG PO (21:30)
[2024-03-25 23:20] VITALS: BP 139/66
[2024-03-26 06:00] VITALS: BMI 21.5
[2024-03-26 07:40] LABS: Hematocrit 29.3 % (39.0-52.0); Hemoglobin 10.1 g/dL (13.0-18.0); Mean Corp Hgb Conc. 34.5 g/dL (33.0-37.0); Mean Corpuscular Hgb 28.6 pg (27.0-31.0); Mean Platelet Volume 9.9 fL (7.4-10.4); Platelet Count 255 10^3/uL (130-400); Red Blood Cell Count 3.53 10^6/uL (4.70-6.10); Red Cell Dist. Width 14.3 % (11.5-14.5); White Blood Cell Count 8.3 10^3/uL (4.8-10.8)
[2024-03-26 07:56] VITALS: BP 162/73
[2024-03-26 08:01] LABS: Blood Urea Nitrogen 15 mg/dl (9-20); Calcium 9.4 mg/dl (8.4-10.2); Carbon Dioxide 18 mmol/L (22-30); Chloride 103 mmol/L (98-107); Estimated Creatinine Clearance 39 ml/min; Glucose 100 mg/dl (70-99); Potassium 4.1 mmol/L (3.5-5.1); Sodium 133 mmol/L (135-145); eGFR 51.45
[2024-03-26] MEDS: PROTONIX 40 MG PO (08:50)
[2024-03-26] MEDS: PROCARDIA XL (EXTENDED RELEASE) 30 MG PO (08:50)
[2024-03-26] MEDS: NEURONTIN 300 MG PO (08:50)
[2024-03-26] MEDS: ASPIR LOW (ENTERIC COATED) 81 MG PO (08:51)
[2024-03-26] MEDS: FLOMAX 0.4 MG PO (08:51)
[2024-03-26] MEDS: SENOKOT 8.6 MG PO (08:51)
[2024-03-26] MEDS: LEXAPRO 5 MG PO (08:51)
[2024-03-26] MEDS: LIPITOR 10 MG PO (08:51)
[2024-03-26] MEDS: KEFLEX 500 MG PO (08:51)
[2024-03-26] MEDS: BACTROBAN 2% OINTMENT 1 APPLIC TOPICAL (08:52)
[2024-03-26] MEDS: MIRALAX PO (08:53)
--- NOTE | 2024-03-26 10:39 | CM ---
Chart reviewed and patient has been cleared for discharge, telephonic case manager submitted Auth to [facility] and patient has been approved from 03/25/24 to 03/27/24, Ref # [id number] Auth from [facility] Case # [id number], telephonic case manager spoke with Jessica in admissions at
[facility] and bed is available today, patient will go by ambulance.
Plan; Patient to transfer to [facility] today.
Report [phone]
[2024-03-26 11:15] VITALS: BP 151/71
--- NOTE | 2024-03-26 11:25 | W.PN.HOSP.TC ---
Today's Communication/Plan
-
Continue Keflex
Discharged SNF
Assessment / Plan
Assessment / Plan
#Nonhealing ulcer on right second toe
#History of right second toe osteomyelitis
-Podiatry consulted, s/p right 2nd toe amputation on 03/21/2024
-Continue Keflex 500 mg twice a day through 03/28.
-Keep right foot elevated at rest, weight-bear to right heel.
-Follow-up with podiatry in the office on Tuesday, 03/28.
-Medically stable for discharge to short-term rehab when bed available
#Acute on chronic hyponatremia
Appreciate nephrology input, sodium improved status post hypertonic saline
Continue fluid restriction, trend sodium
#Acute kidney injury on CKD
-Likely has some degree of renal insufficiency, baseline creatinine near 1.3-1.4
-Resolved with IVF
#Acute blood loss anemia from surgery
-Improving, hemoglobin was down into the nines, up to 10.2 today
#Peripheral artery disease
-No known history of stents
-Remains on home aspirin and statin
#Hypokalemia
Repleted and resolved
#Dementia, unknown type
Appears at baseline
Recommend neuropsychiatric testing outpatient
#History of diabetes
Hemoglobin A1c 5.6
#Benign essential hypertension
Continue nifedipine
#Anxiety/depression
Continue SSRI
#Sacrum is stage 1 PI, POA
Wound care, offloading
DVT prophylaxis�subcu Lovenox
Full code
Anticipated Discharge: Today
Subjective/Interval History
-
Date of Service: March 26, 2024
No acute complaints. Plan for discharge to SNF today. States he feels well and is ready to go
Objective Data
-
Labs:
Laboratory Results
03/26/24
06:31
WBC 8.3
Hgb 10.1 L
Hct 29.3 L
Plt Count 255 D
Sodium 133 L
Potassium 4.1
Chloride 103
Carbon Dioxide 18 L
BUN 15
Creatinine 1.4 H
Glucose 100 H
Calcium 9.4
Vital Signs:
Vital Signs
Temp Pulse Resp BP Pulse Ox
98.2 F 62 20 162/73 93
03/26/24 07:56 03/26/24 08:50 03/26/24 07:56 03/26/24 08:50 03/26/24 07:56
I&O
03/25/24 03/26/24 03/27/24
06:59 06:59 06:59
Intake Total 1080 / 1080 980 / 980
Output Total 1000 / 1000 625 / 625
Balance 80 / 80 355 / 355
Review of Systems
-
History Source: Patient
Constitutional: Reports No Symptoms
Respiratory: Reports No Symptoms
Cardiac: Reports No Symptoms
Abdomen/GI: Reports No Symptoms
Genitourinary: Reports No Symptoms
Musculoskeletal: Reports No Symptoms
Hematologic / Lymphatic: Reports No Symptoms
Physical Exam
-
General: No Apparent Distress, Appears Chronically Ill and Other (Thin elderly male)
HEENT: Normocephalic, Atraumatic, Moist Mucous Membranes and Anicteric
Respiratory: Clear to Auscultation and Non Labored Respirations
Cardiac: Regular Rhythm and S1/S2; Negative Murmur, Rub, JVD or Gallop
GI: Soft, Nontender, Nondistended and Normal Bowel Sounds
Musculoskeletal: No Clubbing, No Cyanosis, No Edema and Other (Bandaged lower extremity overlying site of ulceration)
Skin: Warm and Dry; Negative Rash or Jaundice
Neuro: AO x 3, Nonfocal/Grossly Intact and Central Nerve's Intact
Data Reviewed
-
Labs: Labs Reviewed by me
[2024-03-26 11:26] VITALS: BP 151/71
--- NOTE | 2024-03-26 11:31 | W.DCSUMMARY ---
Discharge Summary
Discharge Data
Date of Admission: 03/19/24
Date of Discharge: 03/26/24
-
Pending Results: No
Hospital Course
Presented with nonhealing ulcer of the second digit on the right foot. Was seen by podiatry, had amputation of the second digit performed. Was treated with antibiotics were transitioned to Keflex 500 mg twice daily. Needs to continue on oral
antibiotic therapy through 03/28/2024 to complete full course. Was seen by PT and OT who recommended ongoing physical therapy.
Also had a mild prerenal DARRICK and hypovolemic hyponatremia, both of which responded to IV fluids in the hospital. Should promote oral intake and hydration.
Discharge Plan
-
Patient Disposition: [facility]/SNF
Discharge Diagnosis/Procedures: Right second toe osteomyelitis status post amputation, acute on chronic hyponatremia, acute kidney injury, peripheral artery disease, hypokalemia, dementia
Condition: Good
Diet: Low Fat and Low Cholesterol
Activity: As tolerated
Additional Activity: Can ambulate with surgical shoe and walker, weight-bear to right heel.
Activity Restrictions/Additional Instructions:
Continue Keflex 500 mg twice a day through 03/28.
Keep right foot elevated at rest, weight-bear to right heel.
Follow-up with podiatry in the office on Tuesday, 03/28.
Please follow-up with Dr. Le for neuropsychiatric testing for dementia.
Referrals:
Julián Tello MD [Family Provider] - in one week
Bao Le PSY [Specified Professional Personl] - in two to three weeks
Sydney Owens DPM [Specified Professional Personl] - 03/28/24 (Call for appointment. )
Prescriptions:
New
sennosides [Senna Laxative] 8.6 mg Tablet
8.6 mg PO BID 7 Days Qty: 14 0RF
cephalexin 500 mg Capsule
500 mg PO BID 3 Days Qty: 6 0RF
Continued
pantoprazole 40 mg tablet,delayed release (DR/EC)
40 mg PO DAILY
escitalopram oxalate 5 mg tablet
5 mg PO DAILY
melatonin 5 mg Tablet
5 mg PO HS
mupirocin 2 % ointment
1 applic topical BID
atorvastatin 10 MG tablet
10 mg PO DAILY Qty: 90 0RF
nifedipine 30 MG tablet extended release
30 mg PO DAILY Qty: 30 0RF
aspirin 81 MG tablet,delayed release (DR/EC)
81 mg PO DAILY Qty: 30 0RF
tamsulosin 0.4 MG capsule
0.4 mg PO DAILY Qty: 90 0RF
gabapentin 300 MG capsule
300 mg PO BID Qty: 180 0RF
Discharge Orders:
Discharge Patient (As Directed); Ordered 03/26/24
Ordered By: Babar Gonzalez
Discharge Date and Time
Print Language: [place] ISLAND[place]
--- NOTE | 2024-03-26 13:39 | W.PN.NEPH.PH ---
Today's Communication / Plan
-
- sign off
Assessment/Plan
-
Assessment
s/p R toe amputation
DARRICK
CKD 3A, 1.2
Hypertension
Hyponatremia acute on chronic
Atrial fibrillation
Plan
-Uosm (316), urine sodium 40
-likely some component of ATN with the procedure
-Creatinine improved to 1.4 and remains grossly nonoliguric
-s/p 3% saline provided and now up to 131
-Maintain 48 ounce fluid restriction
-Maintain fluid restrict
-Citalopram may be precipitating SIADH
Nephrology will sign off at this time. Please call us back with any further questions
-
-
Date of Service: March 26, 2024
CC / HPI / ROS
-
Chief Complaint:
Hyponatremia
Acute kidney
History of Present Illness:
Hemodynamically stable
Creatinine down to 1.4
Serum sodium up to 131 following 3% saline infusion 4 days ago
Review of Systems:
Nonoliguric
No fevers
Weights stable
Labs
-
Labs:
WBC 8.3 10^3/uL (4.8-10.8) 03/26/24 06:31
RBC 3.53 10^6/uL (4.70-6.10) L 03/26/24 06:31
Hgb 10.1 g/dL (13.0-18.0) L 03/26/24 06:31
Hct 29.3 % (39.0-52.0) L 03/26/24 06:31
Plt Count 255 10^3/uL (130-400) D 03/26/24 06:31
Sodium 133 mmol/L (135-145) L 03/26/24 06:31
Potassium 4.1 mmol/L (3.5-5.1) 03/26/24 06:31
Chloride 103 mmol/L (98-107) 03/26/24 06:31
Carbon Dioxide 18 mmol/L (22-30) L 03/26/24 06:31
BUN 15 mg/dl (9-20) 03/26/24 06:31
Creatinine 1.4 mg/dL (0.7-1.3) H 03/26/24 06:31
eGFR 51.45 03/26/24 06:31
Glucose 100 mg/dl (70-99) H 03/26/24 06:31
Calcium 9.4 mg/dl (8.4-10.2) 03/26/24 06:31
Phosphorus 3.4 mg/dl (2.5-4.5) 03/23/24 06:43
Albumin 3.6 g/dl (3.5-5.0) 03/22/24 06:33
Physical Exam
-
Vital Signs:
Vital Signs
Temp Pulse Resp BP Pulse Ox
97.2 F 71 16 151/71 92
03/26/24 11:26 03/26/24 11:26 03/26/24 11:26 03/26/24 11:26 03/26/24 11:26
Cardiovascular:: Regular rate and rhythm
Respiratory:: Bilateral: CTA
Lung Excursion:: Normal
Abdomen:: Nontender and Soft
Bowel Sounds:: Normal
Extremity Edema:: None: Bilateral:
Marshall Catheter: No
[2024-03-26 15:44] VITALS: BP 112/57
--- NOTE | 2024-03-27 13:39 | W.PN.UPDATE ---
Update Note
Progress Note Update
Urine culture from ED return positive for Klebsiella oxytoca and Enterobacter cloacae, both with resistance to cefazolin/Keflex equivalent. The patient had no signs of urinary tract infection during his hospitalization, suspect that these are
colonizing species.
I called to [facility], left a message with the clinical dried yeast supervisor. I told them, that in the event he develops symptoms of UTI, his oral antibiotic should be brought into cefdinir to cover for the species within his urine. I
left my phone number for the facility to call back if they have any further questions.
== END 2024-03-26 16:07 | DRG 503 ==
LOC: 4 WEST ACU 16:08
PROVIDERS: ADMITTING PHYSICIAN Family Medicine; ATTENDING PHYSICIAN Internal Medicine; CONSULT PHYSICIAN Podiatrist Foot & Ankle Surgery; CONSULT PHYSICIAN Student in an Organized Health Care Education/Training Program; EMERGENCY PHYSICIAN Emergency Medicine; FAMILY PHYSICIAN Family Medicine
PROC: 0Y6R0Z0 Detachment at Right 2nd Toe, Complete, Open Approach (ICD-10-PCS; 2024-03-22)
DX: M86.671 Other chronic osteomyelitis, right ankle and foot (principal); N17.0 Acute kidney failure with tubular necrosis; D62 Acute posthemorrhagic anemia; E87.1 Hypo-osmolality and hyponatremia; N17.9 Acute kidney failure, unspecified; L89.151 Pressure ulcer of sacral region, stage 1
CPT/HCPCS: 80048; 80053; 81003; 81015; 82533; 82962; 83036; 83735; 83930; 83935; 84100; 84300; 84443; 85025; 85027; 85610; 87070; 87075; 87077; 87086; 87186; 87205; 97110; 97163; 97167; 97530; 99285

== ENCOUNTER → 2024-05-28 13:32 | Outpatient (REF) | payer OTHER, SELFPAY | LOC: RAD 13:32 | PROVIDERS: ATTENDING PHYSICIAN Registered Nurse; FAMILY PHYSICIAN Nurse Practitioner Family | DX: I73.9 Peripheral vascular disease, unspecified (principal); T81.89XA Other complications of procedures, not elsewhere classified, initial encounter | CPT/HCPCS: 93922; 93926; 93971 ==

== ENCOUNTER → 2024-07-25 12:03 | Outpatient (REF) | payer OTHER, SELFPAY | LOC: RAD 12:03 | PROVIDERS: ATTENDING PHYSICIAN Registered Nurse; FAMILY PHYSICIAN Nurse Practitioner Family; REFERRING PHYSICIAN Surgery Vascular Surgery | DX: I73.9 Peripheral vascular disease, unspecified (principal) | CPT/HCPCS: 93922; 93925; 93971 ==

== ENCOUNTER 2024-11-09 11:04 | Inpatient (IN) | payer OTHER, SELFPAY ==
--- NOTE | 2024-11-09 08:23 | ED.GENMED ---
History of Present Illness
General
Chief Complaint: Change Level of Consciousness
Source: ambulance crew
Exam Limitations: clinical condition and altered mental status
Time Seen by Provider: 11/09/24 08:22
Nursing documentation reviewed up to this point in time: agreed with
History of Present Illness
History of Present Illness:
79-year-old male 2 prior hemorrhagic strokes no history of seizures presents with mental status change at 4 AM police found him agonal was given CPR EMS put a nasal airway and, report that he had 'doll's eyes' nystagmus, my evaluation he is
incontinent of urine, somnolent pupils are 2-3 OU minimally responsive
Discussed with at bedside she found the patient snoring with a decreased respirations eyes were shaking he was incontinent of urine no seizure history, he is DNR no shocks no intubation would be okay with meds and antibiotics
Past History
Past History
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
right temporoparietal)
ED Past Surgical History: Cardiac (AICD) and Other (Left carotid endarterectomy March 2019)
Social History
Tobacco: Non-smoker
Alcohol: None
Drug: None
Personal:
Living: with family
Employment: Retired
Family History
Family History: Unable to obtain
Phy Exam
Physical Exam
Physical Exam:
Physical Exam
General: Somnolent male chronically ill with
Neck: No tongue bite pupils 2-3
Heart: Regular
Lungs: Shallow
Abdomen: Flat
Neuro: Stuporous
Skin: no rash
Psychiatric: Unable to
Extremities: No edema
Course
Orders/Labs/Results
Orders:
Orders
11/09/24 08:22
CT Head W/o Iv Contrast Urgent
Comment:
Reason For Exam: coma
Bedside Glucose- Treatment ONCE
Cardiac Monitoring- Treatment ONCE
O2 Therapy [RESP] Stat
Titrate/Wean O2 to maintain O2 sat greater than (%): 98
11/09/24 08:23
Electrocardiogram (*1) Stat
Reason for Study: Other
Other Reason for Exam: neuro symptoms
EKG- Treatment ONCE
11/09/24 08:31
Complete Blood Count/With Diff Urgent
Comprehensive Metabolic Panel Urgent
PTT Urgent
Prothrombin Time Urgent
Troponin I Urgent
11/09/24 08:56
Morphine Sulfate 2 mg .ROUTE .STK-MED ONE
11/09/24 08:58
Morphine Sulfate 2 mg IV NOW STA
11/09/24 09:07
Case Management Consult ONCE
Case Management Consult: Hospice
Hospice: Evaluation and treat
11/09/24 09:08
Morphine Sulfate 2 mg IV NOW STA
11/09/24 09:18
Morphine Sulfate 2 mg IV Q1HPRN PRN
Morphine Sulfate See Protocol IV [id number] PRN
Begin protocol on step:: refer to Morphine infusion order
11/09/24 09:21
Lorazepam [Ativan] 1 mg IV Q4HPRN PRN
11/09/24 09:30
Morphine Sulfate 100 mg/100 ml [Morphine] 100 mg in 100 ml IV PER PROTOCOL
Begin protocol on step:: step 1
11/09/24 10:[address] See Dose Instructions IV DIRECTED
Abnormal Lab Results
11/09/24 11/09/24
08:29 08:31
RBC 3.52 L 10^6/uL
(4.70-6.10)
Hgb 10.8 L g/dL
(13.0-18.0)
Hct 31.0 L %
(39.0-52.0)
Abs Immat Gran (auto) 0.1 H 10^3/uL
(0-0.05)
Immature Gran % 0.8 H %
(0-0.5)
PT 15.1 H Sec
(11.4-14.6)
Sodium 132 L mmol/L
(135-145)
Carbon Dioxide 19 L mmol/L
(22-30)
Creatinine 1.8 H mg/dL
(0.7-1.3)
Glucose 151 H mg/dl
(70-99)
Alkaline Phosphatase 130 H U/L
(38-126)
POC Glucose 134 H mg/dl
(70-99)
11/09/24 08:31
11/09/24 08:31
Vital Signs
Initial and Last Documented VS:
Initial Vital Signs
Temp
97.2 F
11/09/24 08:21
Last Documented Vital Signs
Temp Pulse Resp BP Pulse Ox
97.2 F 97 14 125/90 100
11/09/24 08:21 11/09/24 09:15 11/09/24 09:15 11/09/24 08:30 11/09/24 09:15
MDM/Problems Addressed
Differential Diagnosis Includes:
ICH seizure sepsis electrolyte abnormality stroke
MDM/Problems Addressed:
Mental status change
*Radiology
Radiology exam reviewed: radiology read reviewed
*Pulse Oximetry
Patient hypoxic: no
*Assistant Director Of Security Interpretation
Rate: normal
Interpretation: normal
Heart Rate: 100
Rhythm: sinus
*Critical Care Note
Total Time (30-74mins, 75-104mins- exclusive of procedures): 30
Update Note
Update Note:
Update, CT noted reviewed with radiology
and son updated reviewed images with them, previously they stated Edward was DNR did not want intubations or shocks, I do not believe he will survive this episode
Have recommended comfort care which they are in agreement with
ED Attending Note
-
Portions of this chart may have been created with voice recognition software.� Occasional wrong word or��sound alike� substitutions may have occurred due to the inherent limitations of voice recognition software.
Discharge Plan
Departure
Patient Disposition: Admit
Date of Disposition: 11/09/24
Time of Disposition: 09:29
Presentation/result/management discussed w/ accepting MD/DO: Hospitalist
Patient with high blood pressure during this ER visit?: No
Condition: Critical
Discharge Problem:
Acute intracerebral hemorrhage
Prescriptions:
No Action
pantoprazole 40 mg tablet,delayed release (DR/EC)
40 mg PO DAILY
escitalopram oxalate 5 mg tablet
5 mg PO DAILY
melatonin 5 mg Tablet
5 mg PO HSPRN PRN (Reason: sleep)
clopidogrel [Plavix] 75 mg Tablet
75 mg PO DAILY
atorvastatin 10 MG tablet
10 mg PO DAILY Qty: 90 0RF
nifedipine 30 MG tablet extended release
30 mg PO DAILY Qty: 30 0RF
aspirin 81 MG tablet,delayed release (DR/EC)
81 mg PO DAILY Qty: 30 0RF
tamsulosin 0.4 MG capsule
0.4 mg PO DAILY Qty: 90 0RF
gabapentin 300 MG capsule
300 mg PO BID Qty: 180 0RF
Interventions
Interventions:
ED- Cardiac Assessment Last Done: 11/09/24 09:08
ED- Neurological Assessment Last Done: 11/09/24 09:08
Discharge Date and Time
Print Language: IRISH
[2024-11-09 08:28] VITALS: BMI 22.9
[2024-11-09 08:30] VITALS: BP 125/90
[2024-11-09 08:31] LABS: Glucose - Point of Care 134 mg/dl (70-99)
[2024-11-09 08:42] LABS: % Basophils 0.7 % (0-2); % Eosinophils 4.4 % (0-6); % Immature Granulocytes 0.8 % (0-0.5); % Neutrophils 63.1 % (42.2-75.2); Absolute Basophils 0.1 10^3/uL (0-0.2); Absolute Eosinophils 0.4 10^3/uL (0-0.7); Absolute Immature Granulocytes 0.1 10^3/uL (0-0.05); Absolute Lymphocytes 2.1 10^3/uL (1.2-3.4); Absolute Monocytes 0.6 10^3/uL (0.1-0.6); Absolute Neutrophils 5.4 10^3/uL (1.4-6.5); Hemoglobin 10.8 g/dL (13.0-18.0); Mean Corp Hgb Conc. 34.8 g/dL (33.0-37.0); Mean Corpuscular Hgb 30.7 pg (27.0-31.0); Mean Corpuscular Volume 88.1 fL (80.0-94.0); Mean Platelet Volume 9.3 fL (7.4-10.4); Nucleated Red Blood Cells % 0 % (-); Platelet Count 186 10^3/uL (130-400); Red Blood Cell Count 3.52 10^6/uL (4.70-6.10); Red Cell Dist. Width 13.4 % (11.5-14.5); White Blood Cell Count 8.6 10^3/uL (4.8-10.8)
[2024-11-09 08:49] LABS: INR 1.16; PT 15.1 Sec (11.4-14.6)
[2024-11-09 08:50] LABS: APTT 29.9 Sec (23.4-35.0)
[2024-11-09 08:56] LABS: ALT (SGPT) < 10 U/L (0-50); AST (SGOT) 24 U/L (17-59); Albumin 3.5 g/dl (3.5-5.0); Alkaline Phosphatase 130 U/L (38-126); Blood Urea Nitrogen 18 mg/dl (9-20); Calcium 8.7 mg/dl (8.4-10.2); Carbon Dioxide 19 mmol/L (22-30); Chloride 105 mmol/L (98-107); Estimated Creatinine Clearance 33 ml/min; Glucose 151 mg/dl (70-99); Potassium 3.9 mmol/L (3.5-5.1); Sodium 132 mmol/L (135-145); Total Bilirubin 0.6 mg/dl (0.2-1.3); Total Protein 6.8 g/dl (6.3-8.2); eGFR 38.05
[2024-11-09] MEDS: MORPHINE SULFATE 2 MG IV ×7 (08:58→17:15)
[2024-11-09 09:02] LABS: Troponin I 0.018 ng/ml
--- NOTE | 2024-11-09 09:34 | CHAP ---
Emotional and spiritual support provided. Prayer blanket given. End of life prayers shared. Stories/memories shared. Will follow.
[2024-11-09] MEDS: ATIVAN 1 MG IV (09:41)
--- NOTE | 2024-11-09 09:52 | CM ---
CM met with family in room. Cm referred patient to Hospice. Plan for comfort care. CM will continue to be available as needed.
[2024-11-09] MEDS: MORPHINE 100 IV (10:01)
--- NOTE | 2024-11-09 10:52 | HPS.HSE ---
Family Physician
-
Family Physician: ANH Rivera
Chief Complaint
-
Obtundation
History of Present Illness
79-year-old male with history of dementia and prior strokes, noted to have altered mental status by his earlier this morning.
states that he woke up around 4 AM, sat at the side of the bed, made a few statements and then went back to bed but around 730 this morning she noted that he was snoring heavily and would not wake up.
All details obtained by speaking with family and chart review. Patient is obtunded.
Medical History
Past Medical History
Past Medical History: Reports Other
Additional Past Medical History:
Dementia, unknown type
DM2
Essential hypertension
Anxiety/depression
PAD
CKD 3b
Hyperlipidemia
Chronic anemia
Chronic hyponatremia
History of stroke 2020
CAD
Carotid stenosis
Chronic atrial fibrillation
Past Surgical History: Reports Other
Additional Past Surgical History:
CABG
Permanent pacemaker/ICD
Left CEA
Hernia repair
Social History
Tobacco: Non-smoker
Alcohol: Occasional
Drug: None
Personal:
Living: With Family
Family History
Family History: Not pertinent
Allergies / Home Medications
Allergies reflects when Allergies were last updated in [employer]
Home Medications with original date entered in [employer]
Allergy/Medication List:
Allergies
Allergy/AdvReac Type Severity Reaction Status Date / Time
No Known Allergies Allergy Verified 03/19/24 12:28
Home Medications
aspirin 81 mg tablet,delayed release 81 mg PO DAILY #30 tabs 10/14/20
atorvastatin 10 mg tablet 10 mg PO DAILY #90 tabs 10/14/20
gabapentin 300 mg capsule 300 mg PO BID #180 caps 10/14/20
nifedipine 30 mg tablet,extended release 30 mg PO DAILY #30 tabs 10/14/20
tamsulosin 0.4 mg capsule 0.4 mg PO DAILY #90 caps 10/14/20
escitalopram oxalate 5 mg tablet 5 mg PO DAILY depression/anxiety 03/01/24
melatonin 5 mg tablet 5 mg PO HSPRN PRN sleep 03/01/24
pantoprazole 40 mg tablet,delayed release 40 mg PO DAILY Gastrointestinal Issue 03/01/24
clopidogrel 75 mg tablet (Plavix) 75 mg PO DAILY 11/09/24
Review of Systems
-
Unable to obtain full review of systems at this time due to: Patient Non-verbal
History Source: Family
Physical Exam
Vital Signs
Vital Signs
Temp Pulse Resp BP Pulse Ox
97.2 F 97 12 125/90 97
11/09/24 08:21 11/09/24 10:45 11/09/24 10:45 11/09/24 08:30 11/09/24 10:45
Physical Exam
General: Respiratory Distress (Heavy snoring) and Appears Chronically Ill
HEENT: NormoCephalic and Anicteric
Respiratory: Rhonchi
Cardiac: S1/S2 and Regular Rhythm
GI: Soft, Non Tender and Non Distended
Musculoskeletal: No Clubbing, No Cyanosis and No Edema
Skin: Warm and Dry
Neuro: Sedated
Hematologic/Lymphatic: No Lymphadenopathy
Psych: Calm
Laboratory Results
-
11/09/24 08:31
11/09/24 08:31
Laboratory Results
PT 15.1 Sec (11.4-14.6) H 11/09/24 08:31
INR 1.16 11/09/24 08:31
APTT 29.9 Sec (23.4-35.0) 11/09/24 08:31
pH Cancelled 11/09/24 08:23
pCO2 Cancelled 11/09/24 08:23
pO2 Cancelled 11/09/24 08:23
HCO3 Cancelled 11/09/24 08:23
Total Bilirubin 0.6 mg/dl (0.2-1.3) 11/09/24 08:31
AST 24 U/L (17-59) 11/09/24 08:31
ALT < 10 U/L (0-50) 11/09/24 08:31
Alkaline Phosphatase 130 U/L (38-126) H 11/09/24 08:31
Troponin I 0.018 ng/ml 11/09/24 08:31
Impression/Plan
-
Life-threatening intracranial hemorrhage - CT head confirms large acute intraparenchymal hemorrhage in the right frontal lobe with extension into the ventricular system with associated hydrocephalus. Significant mass effect with leftward shift and
subfalcine herniation. Patient is expected not to survive unfortunately. Family requesting comfort measures.
Will admit and continue IV morphine infusion started in the emergency room for comfort.
Family in agreement with plan of care. updated at the bedside.
DNR
[2024-11-09 11:08] VITALS: BP 154/83
[2024-11-09 12:06] VITALS: BP 161/96
--- NOTE | 2024-11-09 12:25 | CM ---
Reviewed the chart notes. Patient's spouse and son are at the bedside. Patient resides with spouse in a two story home. The patient used a rolling walker with ambulation. The patient is on comfort care at this time. CM continues to be
available to patient/family.
Plan: Comfort care.
--- NOTE | 2024-11-09 12:49 | HOSPNOTE ---
Patient will remain on comfort care, patient is actively dying. Emotional support provided. Will continue to follow and support.
--- NOTE | 2024-11-09 18:00 | PTCARENOTE ---
Patient admitted from ED onto 2N. Patient comfort care. Morphine gtt hung in ED. Patient on step 2. Patient tachycardic and tachypneic. PRN dose administered per protocol. 3 doses given within 3 hours. Patient advanced to step 3 morphine gtt. Family
at bedside.
[2024-11-09 20:28] VITALS: BP 136/93
--- NOTE | 2024-11-09 22:48 | W.PN.DEATH ---
Addendum entered and electronically signed by ANH Hernandez 11/09/24 23:21:
service learning coordinator contacted. Body released to family by josue jeffers
Original Note:
Pronouncement of
-
Called to see patient to pronounce.
No spontaneous heart tones or respirations noted.
Patient not responsive to verbal stimuli.
Patient is pronounced .
Time of : 22:45
Date of : 11/09/24
Cause of : large acute intraparenchymal hemorrhage
Family Notified: Yes (eda-)
== END 2024-11-09 22:45 | disposition expired | DRG 64 ==
LOC: 2 NORTH 11:04
PROVIDERS: ADMITTING PHYSICIAN Hospitalist; EMERGENCY PHYSICIAN Emergency Medicine; FAMILY PHYSICIAN Nurse Practitioner Family
DX: I61.1 Nontraumatic intracerebral hemorrhage in hemisphere, cortical (principal); G93.5 Compression of brain; G91.9 Hydrocephalus, unspecified; I13.0 Hypertensive heart and chronic kidney disease with heart failure and stage 1 through stage 4 chronic kidney disease, or unspecified chronic kidney disease; Z66 Do not resuscitate; N18.32 Chronic kidney disease, stage 3b; I50.9 Heart failure, unspecified; F03.90 Unspecified dementia, unspecified severity, without behavioral disturbance, psychotic disturbance, mood disturbance, and anxiety; Z86.73 Personal history of transient ischemic attack (TIA), and cerebral infarction without residual deficits; Z51.5 Encounter for palliative care; R40.2A Nontraumatic coma due to underlying condition
CPT/HCPCS: 70450; 80053; 82962; 84484; 85025; 85610; 85730; 96374; 96375; 96376; 99291